=== PATIENT | female | born 1945 | race Two or more races ===

== ENCOUNTER 2017-10-22 08:26 | Day surgery (SDC) | payer MEDICARE, MEDICAID ==
[~2017-10-22] VITALS: Ht 170.2 cm; Wt 159.1 kg
[~2017-10-22 08:26] MED LIST: FURO20TA4 PO; LISI10TA4 PO; POTA8TAB8 PO; TIOT18CA7 IH
[2017-10-22 08:40] VITALS: BP 142/86
[2017-10-22] MEDS ORDERED: fentaNYL/PF 50MCG/1 ML 2ML syringe ONE (08:40)
[2017-10-22] MEDS ORDERED: MIDAZolam 5mg/5ml vial ONE (08:41)
[2017-10-22] MEDS ORDERED: ALBU1.257 NEB (09:01)
[2017-10-22 09:51] VITALS: BP 111/51
[2017-10-22 10:01] VITALS: BP 114/53
[2017-10-22 10:11] VITALS: BP 146/79
== END 2017-10-22 10:40 | disposition home or self-care (01) ==
LOC: GI LAB 08:26
PROVIDERS: ATTEND Internal Medicine Gastroenterology
DX: Z09 Encounter for follow-up examination after completed treatment for conditions other than malignant neoplasm (principal); K57.30 Diverticulosis of large intestine without perforation or abscess without bleeding; D12.3 Benign neoplasm of transverse colon; I11.0 Hypertensive heart disease with heart failure; I50.9 Heart failure, unspecified; I48.91 Unspecified atrial fibrillation; I49.9 Cardiac arrhythmia, unspecified; G47.33 Obstructive sleep apnea (adult) (pediatric); F41.9 Anxiety disorder, unspecified; F32.9 Major depressive disorder, single episode, unspecified; J44.9 Chronic obstructive pulmonary disease, unspecified; Z86.010 Personal history of colon polyps; Z90.49 Acquired absence of other specified parts of digestive tract; Z90.89 Acquired absence of other organs; Z87.891 Personal history of nicotine dependence; Z98.890 Other specified postprocedural states; Z79.899 Other long term (current) drug therapy
CPT/HCPCS: 45385; 99153; G0500; J2250; J3010; J7030; A4620

== ENCOUNTER → 2018-05-14 | Outpatient (CLI) | payer MEDICARE, MEDICAID ==
[~2018-05-14] VITALS: Ht 170.2 cm; Wt 145.1 kg
[~2018-05-14] MED LIST changes: +ALBU1.257 NEB; -TIOT18CA7 IH; +albuterol 2.5 MG/3 ML nebule NEB ONE
[2018-05-14 16:11] LABS: ABG BASE EXCESS 3.6 mmol/L (-2.0-3.0); ABG HCO3 31.2 mmol/L (22.0-26.0); ABG OXYGEN SATURATION 90.4 % (95-98); ABG PCO2 (T) 62.4 mmHg (32.0-45.0); ABG PH (T) 7.317 (7.350-7.450); ABG PO2 (T) 63.5 mmHg (83-108); ALLEN'S TEST Positive; FCOHb 0.5 % (0.5-1.5); FLOW 2 L/min; FO2Hb 89.9 % (94-100); TOTAL HEMOGLOBIN 12.2 G/dl (12.0-16.0)
== END | disposition home or self-care (01) ==
LOC: RT 15:06
PROVIDERS: ATTEND Internal Medicine Pulmonary Disease
DX: G47.33 Obstructive sleep apnea (adult) (pediatric) (principal); J44.9 Chronic obstructive pulmonary disease, unspecified; R06.09 Other forms of dyspnea; F17.210 Nicotine dependence, cigarettes, uncomplicated; Z98.890 Other specified postprocedural states
CPT/HCPCS: 36600; 82803; 85018; 94060; 94729; 94760

== ENCOUNTER 2019-04-13 07:08 | Day surgery (SDC) | payer MEDICARE, MEDICAID ==
[2019-04-07 11:41] LABS: BASOPHILS % (AUTO) 0.1 % (0-1); EOSINOPHILS # (AUTO) 0.1 X10'3 (0-0.9); EOSINOPHILS % (AUTO) 0.6 % (0-6); MEAN CORPUSCULAR HGB CONC 32.1 g/dL (33.0-36.5); MONOCYTES # (AUTO) 0.6 X10'3 (0-0.9); MONOCYTES % (AUTO) 4.2 % (2-12); PRE OP HEMOGLOBIN 11.1 g/dL (12.0-16.0)
[2019-04-07 11:43] LABS: LYMPHOCYTES # (AUTO) 7.5 X10'3 (1.1-4.8); LYMPHOCYTES % (AUTO) 54.3 % (21-51); MEAN CORPUSCULAR VOLUME 93.4 FL (78-98); MEAN PLATELET VOLUME 8.2 FL (7.4-10.4); NEUTROPHILS # (AUTO) 5.6 X10'3 (1.8-7.7); NEUTROPHILS % (AUTO) 40.8 % (42-75); PRE OP HEMATOCRIT 34.6 % (35.0-45.0); PRE OP PLATELET COUNT 156 X10'3 (140-440); RED BLOOD COUNT 3.71 X10'6 (4.20-5.60)
[2019-04-07 11:55] LABS: ALBUMIN 3.4 G/DL (3.4-5.0); ALBUMIN/GLOBULIN RATIO 0.9 (1.1-1.5); ALKALINE PHOSPHATASE 87 IU/L (46-116); BLOOD UREA NITROGEN 44 MG/DL (7-18); BUN/CREATININE RATIO 30.6 (6.6-38.0); CALCIUM 8.6 MG/DL (8.5-10.1); CHLORIDE 107 MMOL/L (99-107); CREATININE 1.44 MG/DL (0.40-0.90); PRE OP ALT 17 U/L (30-65); PRE OP ANION GAP 6 (8-16); PRE OP AST 10 U/L (10-37); PRE OP BILIRUB, TOTAL 0.3 MG/DL (0.0-1.0); PRE OP GLUCOSE 100 MG/DL (70-104); PRE OP POTASSIUM 4.9 MMOL/L (3.4-5.1); PRE OP SODIUM 145 MMOL/L (135-145); TOTAL CARBON DIOXIDE 32.1 MMOL/L (24-32); TOTAL PROTEIN 7.4 G/DL (6.4-8.2); eGFR 36 ML/MIN
[2019-04-07 12:25] LABS: TOTAL CELLS COUNTED 100
[2019-04-07 12:27] LABS: ELLIPTOCYTES FEW; PLATELET ESTIMATE NORMAL; SMUDGE CELLS 1+; STOMATOCYTES 2+
[2019-04-13] VITALS (7 sets, daily range): BP systolic 140–180; BP diastolic 70–78
[~2019-04-13] VITALS: Ht 170.2 cm; Wt 171.3 kg
[~2019-04-13 07:08] MED LIST changes: +BUPIVAcaine/PF 2.5mg/ml (0.25%) 10ml vial ONE; +DOCUMENT DATE & TIME OF BETA-BLOCKER PO ONE; -albuterol 2.5 MG/3 ML nebule NEB ONE; +ceFAZolin 1GM/D5W- ADD-VANTAGE 50 ML IV ONE; +cefazolin/dext.iso 2gm/100 ML IV ONE; +famotidine 20mg tablet PO ONE; +ringers solution, lacted 1,000 ML IV SCH
[2019-04-13] MEDS ORDERED: LIDOcaine 0.5% (5mg/ml) 50ml vial ONE (08:01)
[2019-04-13] MEDS ORDERED: fentaNYL/PF 50MCG/1 ML 2ML syringe ONE (11:03)
[2019-04-13] MEDS ORDERED: midazolam 2 mg/2 ml injection ONE (11:05)
[2019-04-13] MEDS ORDERED: hydrALAZINE 20mg/ml inj. IV ONE (11:24)
--- NOTE | 2019-04-13 11:30 | NUR ---
ADMITTED TO PACU FROM OR ACCOMPANIED BY ANESTHESIA. INTIAL PHYSICAL ASSESSMENT DONE AND RECORDED. AWAKE AND RESPONSE ON ARRIVE YO PACU, REPORT RECEIVED FROM ANESTHESIA.
--- NOTE | 2019-04-13 12:15 | NUR ---
Discharge criteria met, discharge instructions given, demonstrates verbal understanding. Discharged home in good condition.
== END 2019-04-13 12:15 | disposition home or self-care (01) ==
LOC: PAS 07:08
PROVIDERS: ATTEND Orthopaedic Surgery Hand Surgery
DX: G56.02 Carpal tunnel syndrome, left upper limb (principal); J44.9 Chronic obstructive pulmonary disease, unspecified; G47.33 Obstructive sleep apnea (adult) (pediatric); I25.2 Old myocardial infarction; I11.0 Hypertensive heart disease with heart failure; I50.9 Heart failure, unspecified; M19.90 Unspecified osteoarthritis, unspecified site; I25.10 Atherosclerotic heart disease of native coronary artery without angina pectoris; E66.01 Morbid (severe) obesity due to excess calories; Z68.43 Body mass index [BMI] 50.0-59.9, adult; Z99.81 Dependence on supplemental oxygen; Z87.891 Personal history of nicotine dependence; Z79.899 Other long term (current) drug therapy; Z72.89 Other problems related to lifestyle; Z95.5 Presence of coronary angioplasty implant and graft
CPT/HCPCS: 29848; 36415; 80053; 82948; 85025; 93005; J0360; J0690; J2001; J2250; J3010; J3490; A4215; A7000; J7120

== ENCOUNTER 2019-08-07 21:37 | Emergency (ER) | payer MEDICARE, MEDICAID ==
[~2019-08-07] VITALS: Ht 170.2 cm; Wt 168.0 kg
[~2019-08-07 21:37] MED LIST changes: -BUPIVAcaine/PF 2.5mg/ml (0.25%) 10ml vial ONE; -DOCUMENT DATE & TIME OF BETA-BLOCKER PO ONE; -ceFAZolin 1GM/D5W- ADD-VANTAGE 50 ML IV ONE; -cefazolin/dext.iso 2gm/100 ML IV ONE; -famotidine 20mg tablet PO ONE; -ringers solution, lacted 1,000 ML IV SCH
[2019-08-07 21:41] VITALS: BP 162/69
[2019-08-07] MEDS ORDERED: TETanus/Pertussis (Acell)/Diphther VAC/PF (Tdap-Adult) 0.5ml syringe IMVAC ONE (22:15)
[2019-08-07] MEDS ORDERED: traMADol 50MG tablet PO ONE (23:00)
[2019-08-07] MEDS ORDERED: CEPH-572 PO (23:09)
== END 2019-08-07 23:23 | disposition home or self-care (01) ==
LOC: ER 21:37
DX: S81.812A Laceration without foreign body, left lower leg, initial encounter (principal); Z90.49 Acquired absence of other specified parts of digestive tract; Z98.890 Other specified postprocedural states; Z60.2 Problems related to living alone; Z56.0 Unemployment, unspecified; Z79.899 Other long term (current) drug therapy; W18.39XA Other fall on same level, initial encounter; Y93.89 Activity, other specified; Y92.098 Other place in other non-institutional residence as the place of occurrence of the external cause; Y99.8 Other external cause status
CPT/HCPCS: 12001; 73564; 73590; 90471; 90715; 99283

== ENCOUNTER 2020-05-23 14:28 | Inpatient (IN) | payer MEDICARE, MEDICAID ==
[~2020-05-23] VITALS: Ht 167.6 cm; Wt 140.9 kg
[2020-05-23 15:24] LABS: EOSINOPHILS # (AUTO) 0.1 X10'3 (0-0.9); EOSINOPHILS % (AUTO) 0.3 % (0-6); MEAN CORPUSCULAR HEMOGLOBIN 29.2 PG (27.0-31.0); MEAN CORPUSCULAR HGB CONC 31.1 g/dL (33.0-36.5); MEAN PLATELET VOLUME 7.8 FL (7.4-10.4); MONOCYTES # (AUTO) 0.6 X10'3 (0-0.9)
[2020-05-23 15:26] LABS: BASOPHILS % (AUTO) 0.1 % (0-1); HEMATOCRIT 33.7 % (35.0-45.0); HEMOGLOBIN 10.5 g/dl (12.0-16.0); LYMPHOCYTES # (AUTO) 13.2 X10'3 (1.1-4.8); LYMPHOCYTES % (AUTO) 70.7 % (21-51); MEAN CORPUSCULAR VOLUME 93.9 FL (78-98); MONOCYTES % (AUTO) 3.3 % (2-12); NEUTROPHILS # (AUTO) 4.8 X10'3 (1.8-7.7); NEUTROPHILS % (AUTO) 25.6 % (42-75); PLATELET COUNT 212 X10'3 (140-440); RED BLOOD COUNT 3.59 X10'6 (4.20-5.60); RED CELL DISTRIBUTION WIDTH 14.4 % (11.5-14.5); WHITE BLOOD COUNT 18.7 X10'3 (4.5-11.0)
[2020-05-23 15:39] LABS: ALANINE AMINOTRANSFERASE 27 U/L (12-78); ALBUMIN 3.1 G/DL (3.4-5.0); ALBUMIN/GLOBULIN RATIO 0.8 (1.1-1.5); ALKALINE PHOSPHATASE 86 IU/L (46-116); ANION GAP 4 (8-16); ASPARTATE AMINO TRANSFERASE 13 U/L (10-37); BILIRUBIN,TOTAL 0.3 MG/DL (0.1-1.0); BLOOD UREA NITROGEN 53 MG/DL (7-18); BUN/CREATININE RATIO 18.5 (6.6-38.0); CALCIUM 8.8 MG/DL (8.5-10.1); CHLORIDE 104 MMOL/L (99-107); CREATININE 2.86 MG/DL (0.40-0.90); GLUCOSE 101 MG/DL (70-104); POTASSIUM 4.4 MMOL/L (3.5-5.1); SODIUM 140 MMOL/L (135-145); TOTAL CARBON DIOXIDE 32.3 MMOL/L (24-32); TOTAL PROTEIN 6.9 G/DL (6.4-8.2); eGFR 16 ML/MIN
[2020-05-23] MEDS ORDERED: normal saline 1000ml 1,000 ML IV ONE (15:45)
[2020-05-23 15:49] LABS: PLATELET ESTIMATE NORMAL; SMUDGE CELLS 2+; TOTAL CELLS COUNTED 100
[2020-05-23 16:11] LABS: CLARITY,URINE SLIGHTLY CLOUDY (Clear); COLOR,URINE YELLOW (Yellow); GLUCOSE, URINE NEGATIVE (Neg); KETONES,URINE NEGATIVE (Neg); LEUKOCYTE ESTERASE ,URINE MODERATE (Neg); NITRITES, URINE NEGATIVE (Neg); OCCULT BLOOD,URINE MODERATE (Neg); PH,URINE 5.5 (4.8-8.0); PROTEIN,URINE TRACE mg/dl (Neg); UROBILINOGEN,URINE 0.2 E.U/dL (0.2-1.0)
[2020-05-23 16:13] LABS: UA COLLECTION TYPE CLN CATCH MIDSTREAM
[2020-05-23 16:18] LABS: SQUAMOUS EPITHELIAL CELL,UR MANY /LPF (FEW)
[2020-05-23 16:20] LABS: BACTERIA,URINE 1+ /HPF (Neg)
[2020-05-23 16:21] LABS: AMORPHOUS URATES 1+
[2020-05-23] MEDS ORDERED: OMEP-50 PO (17:16)
[2020-05-23] MEDS ORDERED: LORA10TA7 PO (17:16)
[2020-05-23] MEDS ORDERED: GABA-530 PO (17:16)
[2020-05-23] MEDS ORDERED: FLUT16SP20 BOTHNARES (17:16)
--- NOTE | 2020-05-23 17:16 | NUR ---
WHILE ASSISTING PT BACK INTO BED FROM THE BEDSIDE CAMODE, PT GOT A SMALL SKING TEAR MEDIALLY JUST ABOVE HER LT ANKLE. WOUND WAS CLEANED AND DRESSED WITH ABX OINTMENT AND BANDAID, PROVIDER NOTIFIED OF INJURY. SKIN TEAR IS APPROX 1 CM IN DIAMETER. PHOTO TAKEN AND ADDED TO PT CHART
[2020-05-23] MEDS ORDERED: potassium CL 10mEq/100ml bag 100 ML IV PRN ×2 (18:05)
[2020-05-23] MEDS ORDERED: acetaminophen 325mg tablet PO PRN (18:05)
[2020-05-23] MEDS ORDERED: ondansetron/PF 4mg/2ml inj IV PRN (18:05)
[2020-05-23] MEDS ORDERED: potassium Cl 20 mEq SR tablet PO PRN ×2 (18:05)
[2020-05-23] MEDS: normal saline 1000ml 1,000 ML IV SCH (18:25)
[2020-05-23 18:46] LABS: CLARITY,URINE SLIGHTLY CLOUDY (Clear); GLUCOSE, URINE NEGATIVE (Neg); KETONES,URINE NEGATIVE (Neg); LEUKOCYTE ESTERASE ,URINE MODERATE (Neg); NITRITES, URINE NEGATIVE (Neg); OCCULT BLOOD,URINE MODERATE (Neg); PH,URINE 5.5 (4.8-8.0); PROTEIN,URINE TRACE mg/dl (Neg); UROBILINOGEN,URINE 0.2 E.U/dL (0.2-1.0)
[2020-05-23 18:48] LABS: COLOR,URINE DARK YELLOW (Yellow); UA COLLECTION TYPE CLN CATCH MIDSTREAM
--- NOTE | 2020-05-23 18:51 | NUR ---
GIVEN YOGURT, APPLESAUCE, CRANBERRY JUICE, AND WATER PER PT REQUEST. NO OTHER NEEDS AT THIS TIME
[2020-05-23 18:59] LABS: AMORPHOUS URATES 1+; BACTERIA,URINE 2+ /HPF (Neg); MUCUS STRANDS FEW /LPF (Neg); SQUAMOUS EPITHELIAL CELL,UR MANY /LPF (FEW)
[2020-05-23] MEDS: K and/or MAG REPLACEMENT MC SCH (20:00)
[2020-05-23] MEDS: docusate sod 100mg capsule PO SCH (20:12)
[2020-05-23] MEDS: heparin, porcine 5000 units/ml vial SQ SCH (20:13)
[2020-05-23 23:00] VITALS: BP 136/59
[2020-05-24] MEDS: normal saline 1000ml 1,000 ML IV SCH ×2 (04:05→14:05)
[2020-05-24 06:00] VITALS: BP 125/63
--- NOTE | 2020-05-24 06:21 | NUR ---
REPORT GIVEN TO CRISPIN ASHRAF
[2020-05-24 06:56] LABS: EOSINOPHILS # (AUTO) 0.1 X10'3 (0-0.9); MEAN PLATELET VOLUME 7.9 FL (7.4-10.4)
[2020-05-24 06:58] LABS: BASOPHILS % (AUTO) 0.3 % (0-1); EOSINOPHILS % (AUTO) 0.6 % (0-6); HEMATOCRIT 32.1 % (35.0-45.0); HEMOGLOBIN 9.9 g/dl (12.0-16.0); LYMPHOCYTES # (AUTO) 11.6 X10'3 (1.1-4.8); LYMPHOCYTES % (AUTO) 66.6 % (21-51); MEAN CORPUSCULAR HEMOGLOBIN 29.3 PG (27.0-31.0); MEAN CORPUSCULAR VOLUME 94.6 FL (78-98); MONOCYTES # (AUTO) 0.8 X10'3 (0-0.9); MONOCYTES % (AUTO) 4.4 % (2-12); NEUTROPHILS # (AUTO) 4.9 X10'3 (1.8-7.7); NEUTROPHILS % (AUTO) 28.1 % (42-75); PLATELET COUNT 200 X10'3 (140-440); RED BLOOD COUNT 3.39 X10'6 (4.20-5.60); RED CELL DISTRIBUTION WIDTH 14.2 % (11.5-14.5); WHITE BLOOD COUNT 17.4 X10'3 (4.5-11.0)
[2020-05-24 07:07] LABS: ALBUMIN 2.9 G/DL (3.4-5.0); ANION GAP 5 (8-16); BLOOD UREA NITROGEN 46 MG/DL (7-18); BUN/CREATININE RATIO 18.8 (6.6-38.0); CALCIUM 8.5 MG/DL (8.5-10.1); CHLORIDE 110 MMOL/L (99-107); CREATININE 2.45 MG/DL (0.40-0.90); GLUCOSE 103 MG/DL (70-104); POTASSIUM 4.5 MMOL/L (3.5-5.1); SODIUM 145 MMOL/L (135-145); TOTAL CARBON DIOXIDE 29.6 MMOL/L (24-32); eGFR 19 ML/MIN
[2020-05-24 07:22] LABS: PLATELET ESTIMATE NORMAL; TOTAL CELLS COUNTED 100
[2020-05-24 07:23] LABS: SMUDGE CELLS 2+
[2020-05-24] MEDS: CefTRIAXone/D5W-Rocephin 1gm 50 ML IV SCH (07:42)
[2020-05-24] MEDS: docusate sod 100mg capsule PO SCH ×2 (07:43→20:47)
[2020-05-24] MEDS: heparin, porcine 5000 units/ml vial SQ SCH ×2 (07:43→20:48)
[2020-05-24] MEDS: fluticasone nasal spray 16GM bottle NS SCH (08:00)
[2020-05-24] MEDS: K and/or MAG REPLACEMENT MC SCH ×2 (08:00→20:00)
[2020-05-24 18:00] VITALS: BP 130/56
--- NOTE | 2020-05-24 18:30 | NUR ---
Problems reprioritized. Patient report given, questions answered & plan of care reviewed with Sherrie ASHRAF.
[2020-05-24 20:45] VITALS: BP 140/62
[2020-05-24] MEDS: mineral oil/petrolatum, white cream 113gm jar TP SCH (20:47)
[2020-05-24] MEDS: lactobacillus rhamnosus 10,000 MMU CELLS/CAPSULE PO SCH (20:47)
--- NOTE | 2020-05-24 22:00 | NUR ---
patient refuses to turn onto side or have pillows propped to reposition off of coccyx. educated on priority and risks and benefits. pt stated "no!" will continue to attempt to reposition.
[2020-05-25 02:30] VITALS: BP 135/60
--- NOTE | 2020-05-25 02:47 | NUR ---
noted patient has only 1-2 word sentences. asked pt if she takes lasix at home - she nodded yes. no lasix ordred - held on admission. paged MD for orders due to patient's increased SOB. VSS sats 95 % on 1.5L. respirations 28
[2020-05-25] MEDS ORDERED: furosemide 40mg/4ml inj IV ONE (02:55)
--- NOTE | 2020-05-25 03:00 | NUR ---
pt refuses to reposition to her sides. continues to sit at 60 degrees head elevation on her back.
[2020-05-25] MEDS: normal saline 1000ml 1,000 ML IV SCH ×2 (03:20→17:09)
[2020-05-25 06:00] VITALS: BP 133/67
--- NOTE | 2020-05-25 06:16 | NUR ---
reported to days. noted to RN to watch for fluid overload. sats 90% on 1.5 L at this time.
--- NOTE | 2020-05-25 06:33 | NUR ---
Received report from Sherrie ASHRAF, [facility].
[2020-05-25] MEDS: K and/or MAG REPLACEMENT MC SCH ×2 (08:00→20:00)
[2020-05-25] MEDS: CefTRIAXone/D5W-Rocephin 1gm 50 ML IV SCH (08:00)
[2020-05-25 09:30] LABS: BASOPHILS % (AUTO) 0.2 % (0-1); EOSINOPHILS # (AUTO) 0.1 X10'3 (0-0.9); LYMPHOCYTES # (AUTO) 14.7 X10'3 (1.1-4.8); LYMPHOCYTES % (AUTO) 64.8 % (21-51); NEUTROPHILS # (AUTO) 7.3 X10'3 (1.8-7.7)
[2020-05-25 09:32] LABS: EOSINOPHILS % (AUTO) 0.3 % (0-6); HEMATOCRIT 36.6 % (35.0-45.0); HEMOGLOBIN 11.2 g/dl (12.0-16.0); MEAN CORPUSCULAR HEMOGLOBIN 29.6 PG (27.0-31.0); MEAN CORPUSCULAR HGB CONC 30.4 g/dL (33.0-36.5); MEAN CORPUSCULAR VOLUME 97.4 FL (78-98); MEAN PLATELET VOLUME 7.8 FL (7.4-10.4); MONOCYTES # (AUTO) 0.6 X10'3 (0-0.9); MONOCYTES % (AUTO) 2.5 % (2-12); NEUTROPHILS % (AUTO) 32.2 % (42-75); PLATELET COUNT 224 X10'3 (140-440); RED BLOOD COUNT 3.76 X10'6 (4.20-5.60); RED CELL DISTRIBUTION WIDTH 14.6 % (11.5-14.5); WHITE BLOOD COUNT 22.7 X10'3 (4.5-11.0)
[2020-05-25] MEDS: docusate sod 100mg capsule PO SCH ×2 (09:40→21:07)
[2020-05-25] MEDS: heparin, porcine 5000 units/ml vial SQ SCH ×2 (09:40→21:07)
[2020-05-25] MEDS: lactobacillus rhamnosus 10,000 MMU CELLS/CAPSULE PO SCH ×2 (09:40→21:07)
[2020-05-25 09:41] LABS: ALBUMIN 3.1 G/DL (3.4-5.0); ANION GAP 5 (8-16); BLOOD UREA NITROGEN 40 MG/DL (7-18); BUN/CREATININE RATIO 16.3 (6.6-38.0); CALCIUM 8.4 MG/DL (8.5-10.1); CHLORIDE 105 MMOL/L (99-107); CREATININE 2.46 MG/DL (0.40-0.90); GLUCOSE 140 MG/DL (70-104); POTASSIUM 4.8 MMOL/L (3.5-5.1); SODIUM 141 MMOL/L (135-145); TOTAL CARBON DIOXIDE 31.2 MMOL/L (24-32); eGFR 19 ML/MIN
[2020-05-25] MEDS: mineral oil/petrolatum, white cream 113gm jar TP SCH ×2 (09:41→21:06)
[2020-05-25] MEDS: fluticasone nasal spray 16GM bottle NS SCH (09:41)
[2020-05-25 10:00] VITALS: BP 147/67
[2020-05-25 10:59] LABS: TOTAL CELLS COUNTED 100
[2020-05-25 11:01] LABS: PLATELET ESTIMATE NORMAL; SMUDGE CELLS 2+
--- NOTE | 2020-05-25 12:16 | NUR ---
PAGECharlie FOR IV PLACEMENT WITH ULTRASOUND. PT HAS NO ACCESSIBLE VEINS AND WOULD REQUIRE A MIDLINE IF NEEDED. PER DR. RASHID, NO IV AT THIS TIME SHE WILL NOTIFY IF NEEDED. GEGE ASHRAF NOTIFIED Mindi BEE RN Addendum: 05/25/20 at 1226 by Verna Meyer RN CORRECTION LUCIANA ASHRAF NOTIFIED OF DR. RASHID'S REQUEST FOR NO IV AT THIS TIME
--- NOTE | 2020-05-25 13:18 | NUR ---
Paged Dr. Snyder, "Suzan [phone] Jesenia Castelan- no IV, held IV abx Rocephin due to no IV, do you want alternate abx via oral?" waiting on orders.
[2020-05-25 14:47] VITALS: BP_SYST 138; BP_SYST 146; BP_DIAS 63; BP_DIAS 67
--- NOTE | 2020-05-25 15:59 | NUR ---
Gave report to Agapito ASHRAF. Paged hosp again "Agapito [phone] Jesenia Castelan: Do you want po antibiotics since IV cannot be started?" waiting for orders.
--- NOTE | 2020-05-25 16:25 | NUR ---
Gave report to Agapito ASHRAF, transferred care.
[2020-05-25] MEDS: levoFLOXACIN 500mg tablet PO SCH (17:09)
--- NOTE | 2020-05-25 18:07 | NUR ---
RECEIVED REPORT FROM RAGHAV ASHRAF AND ASSUMED PATIENT CARE
[2020-05-25 18:27] VITALS: BP 140/48
[2020-05-25 22:00] VITALS: BP 140/58
[2020-05-26] MEDS: HYDROcodone/acetaminophen 5mg/325mg tablet PO PRN ×2 (01:00→23:55)
[2020-05-26] MEDS: LORazepam 0.5 MG tablet PO PRN (01:00)
[2020-05-26 06:00] VITALS: BP 135/68
[2020-05-26 06:49] LABS: BASOPHILS % (AUTO) 0.1 % (0-1); EOSINOPHILS # (AUTO) 0.1 X10'3 (0-0.9); EOSINOPHILS % (AUTO) 0.4 % (0-6); HEMATOCRIT 34.1 % (35.0-45.0); HEMOGLOBIN 10.4 g/dl (12.0-16.0); LYMPHOCYTES # (AUTO) 14.6 X10'3 (1.1-4.8); LYMPHOCYTES % (AUTO) 62.9 % (21-51); MEAN CORPUSCULAR HEMOGLOBIN 29.4 PG (27.0-31.0); MEAN CORPUSCULAR HGB CONC 30.5 g/dL (33.0-36.5); MEAN CORPUSCULAR VOLUME 96.4 FL (78-98); MONOCYTES # (AUTO) 0.8 X10'3 (0-0.9); MONOCYTES % (AUTO) 3.3 % (2-12); NEUTROPHILS # (AUTO) 7.7 X10'3 (1.8-7.7); NEUTROPHILS % (AUTO) 33.3 % (42-75); PLATELET COUNT 202 X10'3 (140-440); RED BLOOD COUNT 3.54 X10'6 (4.20-5.60); RED CELL DISTRIBUTION WIDTH 14.7 % (11.5-14.5); WHITE BLOOD COUNT 23.1 X10'3 (4.5-11.0)
[2020-05-26 07:06] LABS: ANION GAP 6 (8-16); BLOOD UREA NITROGEN 44 MG/DL (7-18); CALCIUM 8.8 MG/DL (8.5-10.1); CHLORIDE 107 MMOL/L (99-107); CREATININE 2.44 MG/DL (0.40-0.90); GLUCOSE 101 MG/DL (70-104); SODIUM 144 MMOL/L (135-145); TOTAL CARBON DIOXIDE 30.6 MMOL/L (24-32); eGFR 19 ML/MIN
[2020-05-26] MEDS: mineral oil/petrolatum, white cream 113gm jar TP SCH ×2 (08:00→21:45)
[2020-05-26 08:23] LABS: PLATELET ESTIMATE NORMAL; TOTAL CELLS COUNTED 100
[2020-05-26 08:24] LABS: SMUDGE CELLS 2+; STOMATOCYTES 1+
[2020-05-26] MEDS: K and/or MAG REPLACEMENT MC SCH ×2 (08:48→19:34)
[2020-05-26] MEDS: heparin, porcine 5000 units/ml vial SQ SCH ×2 (09:06→21:42)
[2020-05-26] MEDS: docusate sod 100mg capsule PO SCH ×2 (09:06→21:41)
[2020-05-26] MEDS: lactobacillus rhamnosus 10,000 MMU CELLS/CAPSULE PO SCH ×2 (09:06→21:41)
[2020-05-26] MEDS: fluticasone nasal spray 16GM bottle NS SCH (09:06)
[2020-05-26] MEDS: CefTRIAXone/D5W-Rocephin 1gm 50 ML IV SCH (09:07)
[2020-05-26 10:00] VITALS: BP 127/55
[2020-05-26] MEDS: normal saline 1000ml 1,000 ML IV SCH ×2 (13:37→23:25)
[2020-05-26] MEDS: levoFLOXACIN 500mg tablet PO SCH (13:37)
[2020-05-26] MEDS ORDERED: diatr meglu/diatrizoate 30ml oral sol.-(3 dose) bottle PO SCH (15:00)
--- NOTE | 2020-05-26 15:34 | NUR ---
REPORT TO SHAISTA ASHRAF
--- NOTE | 2020-05-26 15:37 | NUR ---
received report from ANDRIY hurd. awaiting patient arrival.
[2020-05-26] MEDS: metroNIDAZOLE-Flagyl 500mg/NS 100 ML IV SCH ×2 (16:00→23:25)
--- NOTE | 2020-05-26 16:00 | NUR ---
Linked medication note: patient arrived to floor at 1600. VSS. 1500 dose of flagyl is currently infusing. medication was pulled out of the omnicell by anjelica hurd.
[2020-05-26 16:05] VITALS: BP 149/76
--- NOTE | 2020-05-26 17:49 | NUR ---
PAGER ID: [phone] MESSAGE: Tessa CastelanB : CT said patients creatinine too high for IV contrast. will need to be PO contrast and no IV contrast. thanks! [phone] donnie
--- NOTE | 2020-05-26 18:20 | NUR ---
Problems reprioritized. Patient report given, questions answered & plan of care reviewed with ANDRIY Douglas.
[2020-05-26 18:30] VITALS: BP 143/55
--- NOTE | 2020-05-26 18:40 | NUR ---
Patient in room MONO 346. I have received report from ANDRIY Clemente and had the opportunity to ask questions and assume patient care.
[2020-05-26 19:00] VITALS: BP 143/55
[2020-05-26] MEDS ORDERED: Melatonin 3mg tablet PO SCH (21:30)
[2020-05-26] MEDS: diatr meglu/diatrizoate 30ml oral sol.-(3 dose) bottle PO SCH (21:43)
[2020-05-27] VITALS (10 sets, daily range): BP systolic 97–134; BP diastolic 50–87
[2020-05-27] MEDS: LORazepam 0.5 MG tablet PO PRN (01:44)
[2020-05-27] MEDS ORDERED: Melatonin 3mg tablet PO PRN (02:45)
--- NOTE | 2020-05-27 06:17 | NUR ---
Problems reprioritized. Patient report given, questions answered & plan of care reviewed with ANDRIY Clemente.
[2020-05-27] MEDS: metroNIDAZOLE-Flagyl 500mg/NS 100 ML IV SCH ×2 (07:37→16:42)
[2020-05-27] MEDS: diatr meglu/diatrizoate 30ml oral sol.-(3 dose) bottle PO SCH ×2 (07:39→12:19)
[2020-05-27] MEDS: heparin, porcine 5000 units/ml vial SQ SCH ×2 (07:39→19:59)
[2020-05-27] MEDS: lactobacillus rhamnosus 10,000 MMU CELLS/CAPSULE PO SCH ×2 (07:40→19:59)
[2020-05-27] MEDS: docusate sod 100mg capsule PO SCH ×2 (07:40→19:59)
[2020-05-27] MEDS: K and/or MAG REPLACEMENT MC SCH ×2 (07:40→19:59)
[2020-05-27] MEDS: mineral oil/petrolatum, white cream 113gm jar TP SCH ×2 (07:45→20:00)
[2020-05-27] MEDS: fluticasone nasal spray 16GM bottle NS SCH (07:47)
[2020-05-27 11:37] LABS: EOSINOPHILS % (AUTO) 0.1 % (0-6); MONOCYTES # (AUTO) 0.7 X10'3 (0-0.9); RED BLOOD COUNT 3.83 X10'6 (4.20-5.60)
[2020-05-27 11:38] LABS: ALBUMIN 3.2 G/DL (3.4-5.0); ANION GAP 7 (8-16); BLOOD UREA NITROGEN 49 MG/DL (7-18); BUN/CREATININE RATIO 16.2 (6.6-38.0); CALCIUM 8.9 MG/DL (8.5-10.1); CHLORIDE 106 MMOL/L (99-107); CREATININE 3.03 MG/DL (0.40-0.90); GLUCOSE 148 MG/DL (70-104); POTASSIUM 5.6 MMOL/L (3.5-5.1); SODIUM 141 MMOL/L (135-145); TOTAL CARBON DIOXIDE 28.1 MMOL/L (24-32); eGFR 15 ML/MIN
[2020-05-27 11:39] LABS: BASOPHILS % (AUTO) 0.1 % (0-1); LYMPHOCYTES # (AUTO) 19.9 X10'3 (1.1-4.8); LYMPHOCYTES % (AUTO) 66.4 % (21-51); MEAN PLATELET VOLUME 8.5 FL (7.4-10.4); MONOCYTES % (AUTO) 2.4 % (2-12); NEUTROPHILS # (AUTO) 9.3 X10'3 (1.8-7.7); PLATELET COUNT 237 X10'3 (140-440)
--- NOTE | 2020-05-27 11:48 | NUR ---
Page sent to Respiratory ... Tessa Castelan 346B: new RT orders. thanks! Addendum: 05/27/20 at 1148 by Chyna Buchanan RN Amended: Links added.
[2020-05-27 12:00] LABS: HEMATOCRIT 34.9 % (35.0-45.0); MEAN CORPUSCULAR HEMOGLOBIN 30.1 PG (27.0-31.0); MEAN CORPUSCULAR HGB CONC 31.5 g/dL (33.0-36.5); MEAN CORPUSCULAR VOLUME 95.7 FL (78-98)
[2020-05-27 12:01] LABS: RED CELL DISTRIBUTION WIDTH 14.5 % (11.5-14.5)
[2020-05-27 12:03] LABS: WHITE BLOOD COUNT 30.1 X10'3 (4.5-11.0)
--- NOTE | 2020-05-27 12:05 | NUR ---
PAGER ID: [phone] MESSAGE: Tessa Castelan 346B : critical WBC 30.1. chyna cline [id number] Addendum: 05/27/20 at 1205 by Chyna Buchanan RN Amended: Links added.
[2020-05-27 12:40] LABS: SMUDGE CELLS 2+; TOTAL CELLS COUNTED 100
[2020-05-27 12:42] LABS: LARGE PLATELETS FEW; PLATELET ESTIMATE NORMAL
[2020-05-27 12:45] LABS: ABG BASE EXCESS -8.1 mmol/L (-2.0-2.0); ABG HCO3 26.5 mmol/L (22.0-26.0); ABG PCO2 (T) 124.3 mmHg (32.0-45.0); ALLEN'S TEST POSITIVE; FCOHb 1.2 % (0.0-3.9); FLOW 2 L/min; FMetHb 0.1 % (0.0-1.5); FO2Hb 89.8 % (94-97); TOTAL HEMOGLOBIN 12.3 G/dl (12.0-16.0)
--- NOTE | 2020-05-27 13:45 | NUR ---
Patient in room MONO 346. I have received report from ANDRIY Garland and had the opportunity to ask questions and awaiting patient's arrival to PCU.
--- NOTE | 2020-05-27 13:49 | NUR ---
call to CT scan. they will hold until patient can tolerate being off of the bipap. will notify dr. hardy
--- NOTE | 2020-05-27 13:52 | NUR ---
page sent to maninder. Tessa Castelan 346B : can someone help transfer patient to [facility]. thanks!
--- NOTE | 2020-05-27 14:10 | NUR ---
Pt arrived from Med/Surg floor. Pt alert to name. BLL, call light within reach, Bipap on, 35%Fi02. On [facility] [facility] bed. Hooked up to mobile telemetry. First set of vitals complete.
--- NOTE | 2020-05-27 14:11 | NUR ---
Report given to ANDRIY Lee. patient transferred to room 6608C. All belongings sent with patient.
--- NOTE | 2020-05-27 14:19 | NUR ---
PAGER ID: [phone] MESSAGE: Tessa Castelan [id number] : CT said they will hold the scan until patient is able to tolerate being off of bipap. thanks! [phone]
[2020-05-27] MEDS ORDERED: furosemide 10 MG/1 ML 10ml inj IV ONE (15:40)
[2020-05-27 16:01] LABS: ABG HCO3 26.2 mmol/L (22.0-26.0); ABG OXYGEN SATURATION 94.8 % (94-97); ABG PCO2 (T) 70.6 mmHg (32.0-45.0); ABG PO2 (T) 70.9 mmHg (75.0-100.0); ALLEN'S TEST POSITIVE; FCOHb 0.9 % (0.0-3.9); FMetHb 0.3 % (0.0-1.5); FO2Hb 93.7 % (94-97); RESPIRATORY RATE 22 b/min; TOTAL HEMOGLOBIN 11.3 G/dl (12.0-16.0)
--- NOTE | 2020-05-27 18:21 | NUR ---
Problems reprioritized. Patient report given, questions answered & plan of care reviewed with ANDRIY Dawson. Pt resting comfortably at change of shift, on home trilogy Bipap. Infomred RN pt needs K+ drawn and Troponins drawn.
--- NOTE | 2020-05-27 18:30 | NUR ---
Patient in room PCU 3017. I have received report from Rosa ASHRAF and had the opportunity to ask questions and assume patient care. Patient on Bipap, reeducated the patient that she needs to stay on Bipap for CO2 and her Trilogy is unable to do that.
[2020-05-27 19:21] LABS: ABG BASE EXCESS -0.7 mmol/L (-2.0-2.0); ABG HCO3 28.1 mmol/L (22.0-26.0); ABG OXYGEN SATURATION 95.7 % (94-97); ABG PCO2 (T) 69.2 mmHg (32.0-45.0); ABG PO2 (T) 78.3 mmHg (75.0-100.0); ALLEN'S TEST POSITIVE; FCOHb 0.9 % (0.0-3.9); FO2Hb 94.8 % (94-97); RESPIRATORY RATE 22 b/min; TOTAL HEMOGLOBIN 11.1 G/dl (12.0-16.0)
[2020-05-28] VITALS (7 sets, daily range): BP systolic 107–132; BP diastolic 36–58
[2020-05-28] MEDS: metroNIDAZOLE-Flagyl 500mg/NS 100 ML IV SCH ×4 (00:20→23:50)
--- NOTE | 2020-05-28 00:24 | NUR ---
Refusing Troponin Patient refusing troponin draws, midline PIV unable to draw back blood. 3 hour Troponin 0.04.
--- NOTE | 2020-05-28 06:30 | NUR ---
Problems reprioritized. Patient report given, questions answered & plan of care reviewed with Trish ASHRAF.
[2020-05-28 06:47] LABS: BASOPHILS % (AUTO) 0.1 % (0-1); EOSINOPHILS % (AUTO) 0.2 % (0-6); HEMOGLOBIN 9.9 g/dl (12.0-16.0); RED CELL DISTRIBUTION WIDTH 14.4 % (11.5-14.5)
[2020-05-28 06:48] LABS: LYMPHOCYTES # (AUTO) 17.1 X10'3 (1.1-4.8); MEAN CORPUSCULAR HEMOGLOBIN 29.4 PG (27.0-31.0); MEAN CORPUSCULAR HGB CONC 30.9 g/dL (33.0-36.5); MEAN CORPUSCULAR VOLUME 95.4 FL (78-98); MEAN PLATELET VOLUME 8.4 FL (7.4-10.4); MONOCYTES # (AUTO) 1.2 X10'3 (0-0.9); MONOCYTES % (AUTO) 4.5 % (2-12); NEUTROPHILS # (AUTO) 7.6 X10'3 (1.8-7.7); NEUTROPHILS % (AUTO) 29.2 % (42-75); PLATELET COUNT 193 X10'3 (140-440); RED BLOOD COUNT 3.36 X10'6 (4.20-5.60)
[2020-05-28 07:03] LABS: WHITE BLOOD COUNT 25.9 X10'3 (4.5-11.0)
[2020-05-28 07:04] LABS: ALBUMIN 2.9 G/DL (3.4-5.0); ANION GAP 9 (8-16); BLOOD UREA NITROGEN 54 MG/DL (7-18); BUN/CREATININE RATIO 18.1 (6.6-38.0); CALCIUM 8.4 MG/DL (8.5-10.1); CHLORIDE 107 MMOL/L (99-107); CREATININE 2.99 MG/DL (0.40-0.90); GLUCOSE 81 MG/DL (70-104); SODIUM 144 MMOL/L (135-145); TOTAL CARBON DIOXIDE 27.8 MMOL/L (24-32); eGFR 15 ML/MIN
[2020-05-28] MEDS: K and/or MAG REPLACEMENT MC SCH ×2 (08:00→20:00)
[2020-05-28 08:05] LABS: HYPOCHROMASIA 1+; PLATELET ESTIMATE NORMAL; TOTAL CELLS COUNTED 100
[2020-05-28] MEDS: fluticasone nasal spray 16GM bottle NS SCH (08:28)
[2020-05-28] MEDS: docusate sod 100mg capsule PO SCH ×2 (08:30→20:12)
[2020-05-28] MEDS: mineral oil/petrolatum, white cream 113gm jar TP SCH ×2 (08:30→20:17)
[2020-05-28] MEDS: lactobacillus rhamnosus 10,000 MMU CELLS/CAPSULE PO SCH ×2 (08:30→20:12)
[2020-05-28] MEDS: heparin, porcine 5000 units/ml vial SQ SCH ×2 (08:30→20:13)
[2020-05-28] MEDS ORDERED: levoFLOXACIN 250mg tablet PO SCH (11:00)
--- NOTE | 2020-05-28 12:25 | NUR ---
RT AT PATIENTS BEDSIDE TO DRAW ABG, PATIENT WAS A DIFFICULT STICK AND ALLOWED ME TO ATTEMPT DRAW TWICE, SHE THEN SAID TO STOP AND "YOURE NOT GOING TO STICK ME AGAIN". PRIMARY RN CURRENTLY ON LUNCH, RESOURCE NURSE (ANDRIY REA) NOTIFIED. Addendum: 05/28/20 at 1228 by Shelly Dwyer RT Amended: Links added.
--- NOTE | 2020-05-28 16:07 | NUR ---
Initial: Pt admit DX metabolic encephalopathy r/t CO2 narcosis, UTI, TYSHAWN/CKD, HTN, and requiring bipap per EMR. Advanced to heart healthy diet PO 50-75% initial 2 days this admit declining to 25% avg meals past 3 days not meeting needs. LBM 05/23 receiving routine colace; 5 day constipation in addition to ALOC currently AOx1 likely impacting PO. RD d/w RN regarding additional bowel care if MD agreeable given constipation. Roland 13; mostly dry skin w/ small ulcers noted to toes and L lower leg per WOC note. RD recommended ensure enlive TIDWM for additional protein/kcals needs; likely to tolerate ONS since on bipap. Will continue to monitor. Rec: 1. continue heart healthy diet; encourage PO 2. ensure enlive TIDWM 3. routine bowel care 4. scaled wt this admit Addendum: 05/28/20 at [address] Amended: Links added.
[2020-05-28] MEDS: lactose-reduced food (Ensure Enlive) - 237ml bottle PO SCH (18:00)
--- NOTE | 2020-05-28 18:54 | NUR ---
Problems reprioritized. Patient report given, questions answered & plan of care reviewed with Glenna ASHRAF.
--- NOTE | 2020-05-28 18:55 | NUR ---
Patient in room PCU 3017. I have received report from DARNELL ASHRAF and had the opportunity to ask questions and assume patient care.
[2020-05-29] VITALS (10 sets, daily range): BP systolic 107–132; BP diastolic 39–57
--- NOTE | 2020-05-29 06:15 | NUR ---
Problems reprioritized. Patient report given, questions answered & plan of care reviewed with VARUN ASHRAF.
--- NOTE | 2020-05-29 06:17 | NUR ---
Patient in room PCU 3017. I have received report from Dennise ASHRAF and had the opportunity to ask questions and assume patient care. Patient is sleeping comfortably bipap is on.
[2020-05-29] MEDS: metroNIDAZOLE-Flagyl 500mg/NS 100 ML IV SCH (07:50)
[2020-05-29] MEDS: K and/or MAG REPLACEMENT MC SCH ×2 (07:51→19:59)
[2020-05-29] MEDS: lactobacillus rhamnosus 10,000 MMU CELLS/CAPSULE PO SCH ×2 (07:52→20:00)
[2020-05-29] MEDS: fluticasone nasal spray 16GM bottle NS SCH (07:52)
[2020-05-29] MEDS: heparin, porcine 5000 units/ml vial SQ SCH ×2 (07:52→19:40)
[2020-05-29] MEDS: mineral oil/petrolatum, white cream 113gm jar TP SCH ×2 (07:52→19:56)
[2020-05-29] MEDS: docusate sod 100mg capsule PO SCH ×2 (07:52→20:00)
[2020-05-29] MEDS: lactose-reduced food (Ensure Enlive) - 237ml bottle PO SCH ×2 (08:00→18:00)
[2020-05-29] MEDS: HYDROcodone/acetaminophen 5mg/325mg tablet PO PRN (08:05)
[2020-05-29] MEDS: piperacillin/tazo 4.5gm/100ml 100 ML IV SCH ×2 (09:50→19:40)
--- NOTE | 2020-05-29 13:47 | NUR ---
Patient unable to participate in orthostatic vitals patient states she is too weak to stand.
[2020-05-29 17:10] LABS: ABG BASE EXCESS -1.1 mmol/L (-2.0-2.0); ABG HCO3 33.2 mmol/L (22.0-26.0); ABG PCO2 (T) 139.1 mmHg (32.0-45.0); ABG PO2 (T) 86.1 mmHg (75.0-100.0); ALLEN'S TEST POSITIVE; FCOHb 0.9 % (0.0-3.9); FMetHb 0.2 % (0.0-1.5); TOTAL HEMOGLOBIN 11.5 G/dl (12.0-16.0)
--- NOTE | 2020-05-29 18:12 | NUR ---
Problems reprioritized. Patient report given, questions answered & plan of care reviewed with Nolberto RN and Violet ASHRAF.
--- NOTE | 2020-05-29 18:25 | NUR ---
Patient in room PCU 3017. I have received report from Sally ASHRAF and had the opportunity to ask questions and assume patient care.
--- NOTE | 2020-05-29 18:35 | NUR ---
Patient in room PCU 3017. I have received report from ANDRIY Zavala and had the opportunity to ask questions and assume patient care.
--- NOTE | 2020-05-29 22:47 | NUR ---
Discussed patient condition with Dr. Caldwell. Patient is restless on bipap. Dr. Caldwell ordered 0.5mg ativan IV Q4 PRN.
[2020-05-29] MEDS: LORazepam 2 mg/ml vial IV PRN (23:20)
--- NOTE | 2020-05-29 23:20 | NUR ---
Observed Violet ASHRAF administer Ativan appropriately. Bottle placed in sharps container, unable to scan medication.
[2020-05-30] VITALS (8 sets, daily range): BP systolic 92–110; BP diastolic 30–62
[2020-05-30] MEDS: LORazepam 2 mg/ml vial IV PRN ×2 (04:15→20:37)
--- NOTE | 2020-05-30 06:20 | NUR ---
Problems reprioritized. Patient report given, questions answered & plan of care reviewed with ANDRIY Lovell.
--- NOTE | 2020-05-30 06:20 | NUR ---
orientee Medication Administration: For this medication-pass time frame, all medication were reviewed, dispensed, administered and documented per hospital policy by Violet ASHRAF. Gustavo Medication Administration: For this medication-pass time frame, all medication were reviewed, dispensed, administered and documented per hospital policy by Violet ASHRAF.
--- NOTE | 2020-05-30 06:20 | NUR ---
Problems reprioritized. Patient report given, questions answered & plan of care reviewed with Debra ASHRAF.
--- NOTE | 2020-05-30 06:22 | NUR ---
Patient in room PCU 3017. I have received report from Nolberto ASHRAF and Violet RN and had the opportunity to ask questions and assume patient care.
--- NOTE | 2020-05-30 07:29 | NUR ---
Page Sent promotional table spacer PAGER ID: [phone] MESSAGE: [id number] Meredith. Can I please get a repeat ABG for this patient her pCO2 was 139 and pH6.9 last night . Thanks Sally [phone]
[2020-05-30] MEDS: K and/or MAG REPLACEMENT MC SCH ×2 (08:00→20:00)
[2020-05-30] MEDS: lactose-reduced food (Ensure Enlive) - 237ml bottle PO SCH ×3 (08:00→18:00)
[2020-05-30] MEDS: piperacillin/tazo 4.5gm/100ml 100 ML IV SCH ×2 (09:05→20:34)
[2020-05-30] MEDS: lactobacillus rhamnosus 10,000 MMU CELLS/CAPSULE PO SCH ×2 (09:06→20:36)
[2020-05-30] MEDS: docusate sod 100mg capsule PO SCH ×2 (09:06→20:36)
[2020-05-30] MEDS: fluticasone nasal spray 16GM bottle NS SCH (09:06)
[2020-05-30] MEDS: mineral oil/petrolatum, white cream 113gm jar TP SCH ×2 (09:08→20:37)
[2020-05-30] MEDS: heparin, porcine 5000 units/ml vial SQ SCH ×2 (09:08→20:37)
--- NOTE | 2020-05-30 12:08 | NUR ---
Patient refusing bipap stating someone told her she did not need it. I told her she did and educated her about her CO2 and Ph yesterday and how she became obtunded. Patient still refusing. Received bedside order from Dr. Snyder for repeat ABG.
[2020-05-30 14:05] LABS: ABG BASE EXCESS -1.8 mmol/L (-2.0-2.0); ABG HCO3 29.2 mmol/L (22.0-26.0); ABG OXYGEN SATURATION 97.9 % (94-97); ABG PCO2 (T) 91.6 mmHg (32.0-45.0); ABG PO2 (T) 134.9 mmHg (75.0-100.0); ALLEN'S TEST POSITIVE; FCOHb 0.7 % (0.0-3.9); FLOW 7 L/min; FMetHb 0.3 % (0.0-1.5); FO2Hb 96.9 % (94-97); TOTAL HEMOGLOBIN 10.9 G/dl (12.0-16.0)
--- NOTE | 2020-05-30 14:27 | NUR ---
patient returned to bipap after lunch
[2020-05-30 17:07] LABS: BASOPHILS % (AUTO) 0.1 % (0-1); EOSINOPHILS # (AUTO) 0.1 X10'3 (0-0.9); EOSINOPHILS % (AUTO) 0.4 % (0-6); HEMOGLOBIN 9.9 g/dl (12.0-16.0); MONOCYTES # (AUTO) 0.9 X10'3 (0-0.9); NEUTROPHILS # (AUTO) 6.6 X10'3 (1.8-7.7)
[2020-05-30 17:09] LABS: HEMATOCRIT 32.4 % (35.0-45.0); LYMPHOCYTES # (AUTO) 12.5 X10'3 (1.1-4.8); LYMPHOCYTES % (AUTO) 62.1 % (21-51); MEAN CORPUSCULAR HEMOGLOBIN 29.2 PG (27.0-31.0); MEAN CORPUSCULAR HGB CONC 30.7 g/dL (33.0-36.5); MEAN CORPUSCULAR VOLUME 95.2 FL (78-98); MEAN PLATELET VOLUME 8.2 FL (7.4-10.4); MONOCYTES % (AUTO) 4.5 % (2-12); NEUTROPHILS % (AUTO) 32.9 % (42-75); PLATELET COUNT 164 X10'3 (140-440); RED CELL DISTRIBUTION WIDTH 14.7 % (11.5-14.5); WHITE BLOOD COUNT 20.1 X10'3 (4.5-11.0)
[2020-05-30 17:11] LABS: ALBUMIN 2.8 G/DL (3.4-5.0); ANION GAP 7 (8-16); BLOOD UREA NITROGEN 61 MG/DL (7-18); BUN/CREATININE RATIO 20.1 (6.6-38.0); CALCIUM 8.8 MG/DL (8.5-10.1); CHLORIDE 107 MMOL/L (99-107); CREATININE 3.03 MG/DL (0.40-0.90); GLUCOSE 112 MG/DL (70-104); POTASSIUM 4.7 MMOL/L (3.5-5.1); SODIUM 143 MMOL/L (135-145); TOTAL CARBON DIOXIDE 29.1 MMOL/L (24-32); eGFR 15 ML/MIN
[2020-05-30 18:20] LABS: TOTAL CELLS COUNTED 100
[2020-05-30 18:21] LABS: BASOPHILS % (MANUAL) 1 % (0-1); LYMPHOCYTES % (MANUAL) 47 % (21-51); MONOCYTES % (MANUAL) 3 % (2-12); REACTIVE LYMPHOCYTES % 23 % (0-0)
[2020-05-30 18:22] LABS: HYPOCHROMASIA 1+; PLATELET ESTIMATE NORMAL; SMUDGE CELLS 3+; STOMATOCYTES 1+
--- NOTE | 2020-05-30 18:26 | NUR ---
Problems reprioritized. Patient report given, questions answered & plan of care reviewed with Nolberto RN and Violet ASHRAF.
--- NOTE | 2020-05-30 18:39 | NUR ---
Paged Dr Snyder: [phone] MESSAGE: Jesenia Castelan [id number]--10 run beat of V-tach. K is 4.7. Has been having ectopy in sinus rhythm - sinus tach. Can we get an order for a Mg draw? [phone] ANDRIY Lazo
[2020-05-31 03:00] VITALS: BP 131/76
--- NOTE | 2020-05-31 05:50 | NUR ---
Collette for Ensure Enlive can 05/29/20 1800 for 05/30 1800. Unable to undo medication administration in eMAR.
[2020-05-31 06:00] VITALS: BP 100/52
--- NOTE | 2020-05-31 06:00 | NUR ---
Patient in room PCU 3017. I have received report from LIZZY ASHRAF and had the opportunity to ask questions and assume patient care.
--- NOTE | 2020-05-31 06:20 | NUR ---
Patient in room PCU 3017. I have received report from Nolberto ASHRAF and had the opportunity to ask questions and assume patient care.
--- NOTE | 2020-05-31 06:24 | NUR ---
orientee Medication Administration: For this medication-pass time frame, all medication were reviewed, dispensed, administered and documented per hospital policy by Violet ASHRAF. Orientee Medication Administration: For this medication-pass time frame, all medication were reviewed, dispensed, administered and documented per hospital policy by Violet ASHRAF. Problems reprioritized. Patient report given, questions answered & plan of care reviewed with Hay ASHRAF.
--- NOTE | 2020-05-31 06:26 | NUR ---
Problems reprioritized. Patient report given, questions answered & plan of care reviewed with ANDRIY Guido.
[2020-05-31] MEDS: K and/or MAG REPLACEMENT MC SCH (08:00)
[2020-05-31] MEDS: piperacillin/tazo 4.5gm/100ml 100 ML IV SCH (08:22)
[2020-05-31] MEDS: heparin, porcine 5000 units/ml vial SQ SCH (08:24)
[2020-05-31] MEDS: fluticasone nasal spray 16GM bottle NS SCH (08:24)
[2020-05-31] MEDS: lactobacillus rhamnosus 10,000 MMU CELLS/CAPSULE PO SCH (08:25)
[2020-05-31] MEDS: docusate sod 100mg capsule PO SCH (08:25)
[2020-05-31] MEDS: mineral oil/petrolatum, white cream 113gm jar TP SCH (08:27)
[2020-05-31] MEDS: lactose-reduced food (Ensure Enlive) - 237ml bottle PO SCH ×2 (08:27→13:53)
[2020-05-31 11:00] VITALS: BP 103/53
--- NOTE | 2020-05-31 12:10 | NUR ---
PATIENT CURRENTLY USING A WIGILLIAN CATH Addendum: 05/31/20 at 1216 by Gissel Preston RN Amended: Links added.
[2020-05-31 15:00] VITALS: BP 105/50
[2020-05-31 15:51] LABS: ALBUMIN 2.7 G/DL (3.4-5.0); ANION GAP 5 (8-16); BLOOD UREA NITROGEN 58 MG/DL (7-18); BUN/CREATININE RATIO 21.1 (6.6-38.0); CALCIUM 9.2 MG/DL (8.5-10.1); CHLORIDE 109 MMOL/L (99-107); CREATININE 2.75 MG/DL (0.40-0.90); GLUCOSE 149 MG/DL (70-104); POTASSIUM 4.6 MMOL/L (3.5-5.1); SODIUM 147 MMOL/L (135-145); TOTAL CARBON DIOXIDE 32.6 MMOL/L (24-32); eGFR 17 ML/MIN
--- NOTE | 2020-05-31 17:20 | NUR ---
Orientee documentation: I have reviewed and agree with all interventions, assessments performed and documented by Gissel ASHRAF.
--- NOTE | 2020-05-31 17:40 | NUR ---
CALLED REPORT TO [facility] AT 1500, SPOKE WITH INDY ON LTAC. PATIENTS WAS STABLE PER MD ORDERS, MIDLINE WAS SALINE LOCKED, TELE WAS TAKEN OFF AND RETURNED, WICK CATH WAS REMOVED, ALL PERSONAL BELONGINGS WERE SENT WITH PATIENT. [facility] LEFT WITH PATIENT VIA GURNEY AT 1720, ALL VITAL SIGNS WERE IN NORMAL RANGE BEFORE DEPARTURE.
[2020-06-06] MEDS ORDERED: MONT10TA26 PO (10:45)
== END 2020-05-31 17:20 | DRG 871 ==
LOC: ER 14:28 → ED HOLD 18:03 → ORTHO 4S 22:50 → SUR 3N 05-26 15:57 → PCU 3S 05-27 14:15
PROVIDERS: ADMIT Internal Medicine; ATTEND Internal Medicine
PROC: 5A09357 Assistance with Respiratory Ventilation, Less than 24 Consecutive Hours, Continuous Positive Airway Pressure (ICD-10-PCS; principal; 2020-05-27)
PROC: 5A09357 Assistance with Respiratory Ventilation, Less than 24 Consecutive Hours, Continuous Positive Airway Pressure (ICD-10-PCS; 2020-05-28)
PROC: 5A09457 Assistance with Respiratory Ventilation, 24-96 Consecutive Hours, Continuous Positive Airway Pressure (ICD-10-PCS; 2020-05-29)
DX: A41.9 Sepsis, unspecified organism (principal); N17.0 Acute kidney failure with tubular necrosis; G93.41 Metabolic encephalopathy; J96.20 Acute and chronic respiratory failure, unspecified whether with hypoxia or hypercapnia; N39.0 Urinary tract infection, site not specified; Z68.43 Body mass index [BMI] 50.0-59.9, adult; I13.0 Hypertensive heart and chronic kidney disease with heart failure and stage 1 through stage 4 chronic kidney disease, or unspecified chronic kidney disease; E66.2 Morbid (severe) obesity with alveolar hypoventilation; E86.9 Volume depletion, unspecified; Z66 Do not resuscitate; I50.9 Heart failure, unspecified; Z60.2 Problems related to living alone; R59.0 Localized enlarged lymph nodes; I35.9 Nonrheumatic aortic valve disorder, unspecified; S91.101A Unspecified open wound of right great toe without damage to nail, initial encounter; J44.9 Chronic obstructive pulmonary disease, unspecified; X58.XXXA Exposure to other specified factors, initial encounter; R31.9 Hematuria, unspecified; N18.9 Chronic kidney disease, unspecified; Z74.01 Bed confinement status; Z90.49 Acquired absence of other specified parts of digestive tract; Z99.81 Dependence on supplemental oxygen; Y93.89 Activity, other specified; Y92.89 Other specified places as the place of occurrence of the external cause; Y99.8 Other external cause status
CPT/HCPCS: 36415; 36600; 71045; 71046; 71250; 74176; 76937; 80048; 80053; 81001; 82803; 83605; 83735; 84132; 84145; 84484; 85007; 85018; 85025; 86140; 87040; 87081; 87088; 93005; 93306; 93970; 94660; 94760; 96374; 97110; 97161; 97530; 97535; 99285; G0378; J0696; J1644; J1940; J2060; J2543; J3490; J7030; Q9963

== ENCOUNTER 2020-06-04 16:43 | Inpatient (IN) | payer MEDICARE, MEDICAID ==
[~2020-06-04] VITALS: Ht 165.1 cm; Wt 166.5 kg
[~2020-06-04 16:43] MED LIST changes: -ALBU1.257 NEB; +FLUT16SP20 BOTHNARES; +GABA-530 PO; +LORA10TA7 PO; +OMEP-50 PO
[2020-06-04] MEDS ORDERED: albuterol 2.5 MG/3 ML nebule CONTNEB PRN (16:45)
[2020-06-04] MEDS ORDERED: ipratropium 0.5 MG/2.5ML nebule IH ONE (16:45)
--- NOTE | 2020-06-04 17:00 | NUR ---
PLACED ON BIPAP FIO2 50%
[2020-06-04 17:06] LABS: ABG BASE EXCESS -0.3 mmol/L (-2.0-2.0); ABG HCO3 30.9 mmol/L (22.0-26.0); ABG OXYGEN SATURATION 96.3 % (94-97); ABG PCO2 (T) 95.7 mmHg (32.0-45.0); ABG PO2 (T) 92.1 mmHg (75.0-100.0); ALLEN'S TEST POSITIVE; FLOW 10 L/min; FMetHb 0.1 % (0.0-1.5); FO2Hb 95.2 % (94-97); TOTAL HEMOGLOBIN 11.3 G/dl (12.0-16.0)
[2020-06-04] MEDS ORDERED: methylPREDNISolone sod succ 125mg/2ml vial IV ONE (17:10)
--- NOTE | 2020-06-04 17:17 | NUR ---
PER LAB RAPID COVID IS NEGATIVE ANDRIY DUKE AND DR PRINCE INFORMED
--- NOTE | 2020-06-04 17:32 | NUR ---
PATIENT NOTED WHEEZING,NOT ON DISTRESS,PAGED HOSPITALIST FOR PRN BREATHING TX.MED REC PARTIALLY COMPLETED,PATIENT STATES HE'LL CALL FAMILY FOR ATIVAN DOSE. Addendum: 06/04/20 at 1734 by CHERIE INCORRECT PATIENT.
[2020-06-04] MEDS: normal saline 1000ml 1,000 ML IV SCH (17:50)
[2020-06-04 18:56] LABS: ABG BASE EXCESS -1.6 mmol/L (-2.0-2.0); ABG HCO3 26.7 mmol/L (22.0-26.0); ABG OXYGEN SATURATION 94.8 % (94-97); ABG PCO2 (T) 63.2 mmHg (32.0-45.0); ABG PO2 (T) 72.6 mmHg (75.0-100.0); ALLEN'S TEST POSITIVE; FCOHb 1.1 % (0.0-3.9); FO2Hb 93.8 % (94-97); PATIENT TEMPERATURE 36.6; RESPIRATORY RATE 25 b/min; TOTAL HEMOGLOBIN 10.6 G/dl (12.0-16.0)
[2020-06-04 19:16] LABS: ALANINE AMINOTRANSFERASE 31 U/L (12-78); ALBUMIN 2.9 G/DL (3.4-5.0); ALBUMIN/GLOBULIN RATIO 0.7 (1.1-1.5); ALKALINE PHOSPHATASE 58 IU/L (46-116); ANION GAP 8 (8-16); ASPARTATE AMINO TRANSFERASE 19 U/L (10-37); BILIRUBIN,TOTAL 0.3 MG/DL (0.1-1.0); BLOOD UREA NITROGEN 76 MG/DL (7-18); BUN/CREATININE RATIO 14.3 (6.6-38.0); CALCIUM 8.9 MG/DL (8.5-10.1); CHLORIDE 107 MMOL/L (99-107); CREATININE 5.32 MG/DL (0.40-0.90); GLUCOSE 99 MG/DL (70-104); POTASSIUM 5.8 MMOL/L (3.5-5.1); SODIUM 145 MMOL/L (135-145); TOTAL CARBON DIOXIDE 30.1 MMOL/L (24-32); eGFR 8 ML/MIN
[2020-06-04 19:22] LABS: C-REACTIVE PROTEIN 2.45 MG/DL (0.0-0.5); LACTATE DEHYDROGENASE 225 U/L (81-234); PHOSPHORUS 7.5 MG/DL (2.3-4.5)
[2020-06-04] MEDS ORDERED: PIPE4.5F6 IV (19:49)
[2020-06-04] MEDS ORDERED: ATR0.5NEB IH (19:49)
[2020-06-04] MEDS ORDERED: MELA3TAB39 PO (19:49)
[2020-06-04] MEDS ORDERED: LACT1CAP75 PO (19:49)
[2020-06-04] MEDS ORDERED: ALB0.5UD IH (19:49)
--- NOTE | 2020-06-04 19:53 | NUR ---
SHEMAR SIERRA CAREGIVER [phone]. GAVE HER UPDATE. PT WILL BE ADMITTED AND GOING TO THE PCU FLOOR.
[2020-06-04] MEDS ORDERED: HEPA100D36 SQ (19:55)
[2020-06-04 20:19] LABS: BASOPHILS % (AUTO) 0.1 % (0-1); EOSINOPHILS % (AUTO) 0.1 % (0-6); HEMATOCRIT 30.1 % (35.0-45.0); HEMOGLOBIN 9.2 g/dl (12.0-16.0); LYMPHOCYTES # (AUTO) 14.1 X10'3 (1.1-4.8); LYMPHOCYTES % (AUTO) 64.2 % (21-51); MEAN CORPUSCULAR HEMOGLOBIN 29.7 PG (27.0-31.0); MEAN CORPUSCULAR HGB CONC 30.7 g/dL (33.0-36.5); MEAN CORPUSCULAR VOLUME 96.7 FL (78-98); MEAN PLATELET VOLUME 8.6 FL (7.4-10.4); MONOCYTES # (AUTO) 0.2 X10'3 (0-0.9); NEUTROPHILS # (AUTO) 7.6 X10'3 (1.8-7.7); NEUTROPHILS % (AUTO) 34.6 % (42-75); PLATELET COUNT 140 X10'3 (140-440); RED BLOOD COUNT 3.11 X10'6 (4.20-5.60); RED CELL DISTRIBUTION WIDTH 15.1 % (11.5-14.5); WHITE BLOOD COUNT 21.9 X10'3 (4.5-11.0)
--- NOTE | 2020-06-04 20:28 | NUR ---
med rec addressed. pt came over with a MAR from [employer] - the meds which were on the MAR were entered into [employer]. There were other meds that were current on the external med hx but they were not currently being given to pt according the the MAR therefore they were not "reviewed" in the system.
[2020-06-04 21:10] LABS: PLATELET ESTIMATE NORMAL; TOTAL CELLS COUNTED 100
[2020-06-04] MEDS ORDERED: acetaminophen 325mg tablet PO PRN (21:10)
[2020-06-04] MEDS ORDERED: magnesium hydroxide 30ml (MOM) UD suspension PO PRN (21:10)
[2020-06-04] MEDS ORDERED: mag hydrox/Alum hydrox/simeth 30ml oral suspension PO PRN (21:10)
[2020-06-04] MEDS ORDERED: ondansetron/PF 4mg/2ml inj IV PRN (21:10)
[2020-06-04 21:12] LABS: HYPOCHROMASIA 1+
[2020-06-04] MEDS ORDERED: ipratropium/albuterol 3ml nebule NEB PRN (21:15)
[2020-06-04] MEDS ORDERED: albuterol 2.5 MG/3 ML nebule NEB PRN (21:15)
--- NOTE | 2020-06-04 23:10 | NUR ---
Patient in room U 3011. I have received report from Negin ASHRAF and had the opportunity to ask questions and assume patient care. Addendum: 06/05/20 at 0116 by Roshni Diggs RN Amended: Links added.
[2020-06-04 23:40] VITALS: BP 130/48
--- NOTE | 2020-06-04 23:40 | NUR ---
Pt. arrived ob floor via garney accompanied by ED ANDRIY Kam. Pt . alert and oriented at this time. Bipap in place with Fio2 of 35%. Pt. denies c/o SOB at this time. Pt. experiencing large loose stools; cleaned pt. changed linen, and assisted pt in a comfortable position. Currently inprecautionary isolation pendinging C-diff r/o with sample pending. Call light within reach and bed in low position.. Addendum: 06/05/20 at 0114 by Roshni Diggs RN Amended: Links added.
--- NOTE | 2020-06-05 00:53 | NUR ---
Received pt from ED via [place] accompanied by Ed nurse Negin. Pt. A & O at this time satinder to answer questions appropriately. Pt. on BIPAP at 35% fo2 with c/o no SOB at this time. Lissett
[2020-06-05 02:00] VITALS: BP 134/42
[2020-06-05] MEDS: vancomycin 125mg/5ml ORAL solution 5ml UD bottle PO SCH ×3 (03:04→14:00)
--- NOTE | 2020-06-05 04:00 | NUR ---
Skin check witnessed with two RNs but co-signature failed on the second RN signature; Willis
--- NOTE | 2020-06-05 04:29 | NUR ---
Pt. with another large loose green in color diarrhea. Cleaned pt. and changed linen. Addendum: 06/05/20 at 0532 by Roshni Diggs RN Amended: Links added.
--- NOTE | 2020-06-05 05:00 | NUR ---
Multiple discoloration to lower extremities noted. Rt lower lateral aspect with a new skin tear. Picture taken and filed. Addendum: 06/05/20 at 0707 by Roshni Diggs RN Amended: Links added.
--- NOTE | 2020-06-05 05:05 | NUR ---
Pt. with large lose stools x 3 times this shift. Cleaned pt. and changed linen and gown during those episodes. Addendum: 06/05/20 at 0754 by Roshni Diggs RN Amended: Links added.
[2020-06-05 05:56] LABS: BASOPHILS % (AUTO) 0.1 % (0-1); EOSINOPHILS % (AUTO) 0 % (0-6); HEMOGLOBIN 8.8 g/dl (12.0-16.0); MONOCYTES # (AUTO) 0.2 X10'3 (0-0.9); NEUTROPHILS # (AUTO) 7.4 X10'3 (1.8-7.7); PLATELET COUNT 140 X10'3 (140-440); RED CELL DISTRIBUTION WIDTH 14.6 % (11.5-14.5)
[2020-06-05 05:58] LABS: HEMATOCRIT 28.6 % (35.0-45.0); LYMPHOCYTES # (AUTO) 19.9 X10'3 (1.1-4.8); LYMPHOCYTES % (AUTO) 72.4 % (21-51); MEAN CORPUSCULAR HEMOGLOBIN 29.3 PG (27.0-31.0); MEAN CORPUSCULAR HGB CONC 30.7 g/dL (33.0-36.5); MEAN CORPUSCULAR VOLUME 95.4 FL (78-98); MEAN PLATELET VOLUME 8.7 FL (7.4-10.4); MONOCYTES % (AUTO) 0.6 % (2-12); NEUTROPHILS % (AUTO) 26.9 % (42-75)
--- NOTE | 2020-06-05 06:00 | NUR ---
Patient in room PCU 3011. I have received report from Roshni ASHRAF and had the opportunity to ask questions and assume patient care.
[2020-06-05 06:08] LABS: ALANINE AMINOTRANSFERASE 31 U/L (12-78); ALBUMIN 2.8 G/DL (3.4-5.0); ALBUMIN/GLOBULIN RATIO 0.7 (1.1-1.5); ALKALINE PHOSPHATASE 53 IU/L (46-116); ANION GAP 13 (8-16); ASPARTATE AMINO TRANSFERASE 18 U/L (10-37); BILIRUBIN,TOTAL 0.3 MG/DL (0.1-1.0); BLOOD UREA NITROGEN 85 MG/DL (7-18); BUN/CREATININE RATIO 15.7 (6.6-38.0); CALCIUM 8.7 MG/DL (8.5-10.1); CHLORIDE 105 MMOL/L (99-107); CREATININE 5.42 MG/DL (0.40-0.90); GLUCOSE 112 MG/DL (70-104); POTASSIUM 5.1 MMOL/L (3.5-5.1); SODIUM 145 MMOL/L (135-145); TOTAL CARBON DIOXIDE 27.1 MMOL/L (24-32); TOTAL PROTEIN 6.6 G/DL (6.4-8.2); eGFR 8 ML/MIN
[2020-06-05 06:59] LABS: WHITE BLOOD COUNT 27.4 X10'3 (4.5-11.0)
[2020-06-05 07:00] VITALS: BP 131/58
[2020-06-05] MEDS: normal saline 1000ml 1,000 ML IV SCH ×4 (07:41→23:53)
[2020-06-05] MEDS: heparin, porcine 5000 units/ml vial SQ SCH ×2 (07:51→20:07)
[2020-06-05 08:09] LABS: TOTAL CELLS COUNTED 100
[2020-06-05 08:11] LABS: PLATELET ESTIMATE NORMAL
[2020-06-05 08:12] LABS: HYPOCHROMASIA 1+; POLYCHROMASIA FEW; STOMATOCYTES 1+
[2020-06-05] MEDS ORDERED: LIDOcaine 2% 10ml TOPICAL JELLY (Urojet) TP ONE (10:20)
[2020-06-05 11:00] VITALS: BP 112/56
[2020-06-05 12:48] LABS: BASOPHILS % (AUTO) 0.1 % (0-1); EOSINOPHILS % (AUTO) 0 % (0-6); HEMOGLOBIN 8.4 g/dl (12.0-16.0); MONOCYTES % (AUTO) 1.3 % (2-12); RED CELL DISTRIBUTION WIDTH 14.7 % (11.5-14.5)
[2020-06-05 12:49] LABS: HEMATOCRIT 27.2 % (35.0-45.0); LYMPHOCYTES # (AUTO) 19.6 X10'3 (1.1-4.8); LYMPHOCYTES % (AUTO) 73.3 % (21-51); MEAN CORPUSCULAR HEMOGLOBIN 29.3 PG (27.0-31.0); MEAN CORPUSCULAR HGB CONC 30.8 g/dL (33.0-36.5); MEAN CORPUSCULAR VOLUME 95.1 FL (78-98); MEAN PLATELET VOLUME 8.9 FL (7.4-10.4); MONOCYTES # (AUTO) 0.3 X10'3 (0-0.9); NEUTROPHILS # (AUTO) 6.8 X10'3 (1.8-7.7); NEUTROPHILS % (AUTO) 25.3 % (42-75); PLATELET COUNT 136 X10'3 (140-440); RED BLOOD COUNT 2.86 X10'6 (4.20-5.60)
[2020-06-05 13:01] LABS: WHITE BLOOD COUNT 26.8 X10'3 (4.5-11.0)
--- NOTE | 2020-06-05 13:03 | NUR ---
Page Sent promotional table spacer PAGER ID: [phone] MESSAGE: [id number] Flip. Critical WBC 26.8 peace 80
[2020-06-05 13:35] LABS: C DIFF ANTIGEN NEGATIVE (NEGATIVE); C DIFF SPECIMEN=DIARRHEA? ACCEPTABLE; C DIFFICILE TOXINS A&B NEGATIVE (Neg)
[2020-06-05 15:00] VITALS: BP 155/58
[2020-06-05 15:11] LABS: CLARITY,URINE SLIGHTLY CLOUDY (Clear); COLOR,URINE YELLOW (Yellow); GLUCOSE, URINE NEGATIVE (Neg); KETONES,URINE NEGATIVE (Neg); LEUKOCYTE ESTERASE ,URINE TRACE (Neg); NITRITES, URINE NEGATIVE (Neg); OCCULT BLOOD,URINE MODERATE (Neg); PROTEIN,URINE 30 mg/dl (Neg); UROBILINOGEN,URINE 0.2 E.U/dL (0.2-1.0)
[2020-06-05 15:13] LABS: UA COLLECTION TYPE NON-SPECIFIED
[2020-06-05 15:19] LABS: SQUAMOUS EPITHELIAL CELL,UR FEW /LPF (FEW)
[2020-06-05 15:20] LABS: AMORPHOUS URATES 3+
[2020-06-05 15:22] LABS: TRANSITIONAL EPI CELLS,URINE FEW /HPF
[2020-06-05 15:25] LABS: CAL OXALATE CRYSTALS FEW /HPF (NEGATIVE)
[2020-06-05 15:27] LABS: BACTERIA,URINE FEW /HPF (Neg); RENAL CELLS, URINE FEW /HPF
[2020-06-05 15:28] LABS: YEAST MODERATE /HPF (NEGATIVE)
--- NOTE | 2020-06-05 15:29 | NUR ---
1400 vanco not given after asking pharmacy to retime after it was not brought up by pharmacy earlier today. Per telephone conversation with Franky just hold 1400 dose and continue on reg schedule
[2020-06-05 15:47] LABS: UA EOSINOPHILS NO EOS /HPF
[2020-06-05 17:54] LABS: ALANINE AMINOTRANSFERASE 30 U/L (12-78); ALBUMIN 2.9 G/DL (3.4-5.0); ALBUMIN/GLOBULIN RATIO 0.8 (1.1-1.5); ALKALINE PHOSPHATASE 53 IU/L (46-116); ANION GAP 10 (8-16); ASPARTATE AMINO TRANSFERASE 15 U/L (10-37); BILIRUBIN,TOTAL 0.3 MG/DL (0.1-1.0); BLOOD UREA NITROGEN 86 MG/DL (7-18); BUN/CREATININE RATIO 15.7 (6.6-38.0); CALCIUM 8.6 MG/DL (8.5-10.1); CHLORIDE 106 MMOL/L (99-107); CREATININE 5.48 MG/DL (0.40-0.90); GLUCOSE 131 MG/DL (70-104); POTASSIUM 4.3 MMOL/L (3.5-5.1); SODIUM 145 MMOL/L (135-145); TOTAL CARBON DIOXIDE 28.8 MMOL/L (24-32); TOTAL PROTEIN 6.6 G/DL (6.4-8.2); eGFR 8 ML/MIN
[2020-06-05] MEDS ORDERED: CefTRIAXone 2gm/D5W 50ml BAG 50 ML IV ONE (17:55)
[2020-06-05 18:00] VITALS: BP 157/57
--- NOTE | 2020-06-05 18:00 | NUR ---
Patient in room PCU 3011. I have received report from Sally ASHRAF and had the opportunity to ask questions and assume patient care.
--- NOTE | 2020-06-05 18:14 | NUR ---
Problems reprioritized. Patient report given, questions answered & plan of care reviewed with Violet ASHRAF.
[2020-06-05 22:00] VITALS: BP 141/61
[2020-06-06] VITALS (8 sets, daily range): BP systolic 101–152; BP diastolic 48–81
--- NOTE | 2020-06-06 03:28 | NUR ---
O2 sats would drop in the 80's, would fiddle with the finger probe and it would go up in the 90's. After doing this a few times I changed the pulse oximeter adhesive sensor. Will continue to monitor
[2020-06-06] MEDS: normal saline 1000ml 1,000 ML IV SCH ×3 (06:17→20:29)
--- NOTE | 2020-06-06 06:25 | NUR ---
Problems reprioritized. Patient report given, questions answered & plan of care reviewed with Sally ASHRAF.
--- NOTE | 2020-06-06 06:32 | NUR ---
tele grout sewer line repairer notified me patient has been in Afib with RVR since 519. with HR sustaining in the 120s-130s. Dr. Badillo was paged.
[2020-06-06 06:33] LABS: ALANINE AMINOTRANSFERASE 30 U/L (12-78); ALBUMIN 2.8 G/DL (3.4-5.0); ALBUMIN/GLOBULIN RATIO 0.8 (1.1-1.5); ALKALINE PHOSPHATASE 50 IU/L (46-116); ANION GAP 8 (8-16); ASPARTATE AMINO TRANSFERASE 18 U/L (10-37); BILIRUBIN,TOTAL 0.2 MG/DL (0.1-1.0); BLOOD UREA NITROGEN 88 MG/DL (7-18); BUN/CREATININE RATIO 16.6 (6.6-38.0); CALCIUM 8.7 MG/DL (8.5-10.1); CHLORIDE 108 MMOL/L (99-107); GLUCOSE 91 MG/DL (70-104); HEMOGLOBIN 8.9 g/dl (12.0-16.0); MEAN CORPUSCULAR HGB CONC 31.5 g/dL (33.0-36.5); MEAN PLATELET VOLUME 8.6 FL (7.4-10.4); POTASSIUM 4.1 MMOL/L (3.5-5.1); RED BLOOD COUNT 2.93 X10'6 (4.20-5.60); SODIUM 146 MMOL/L (135-145); TOTAL CARBON DIOXIDE 30.2 MMOL/L (24-32); TOTAL PROTEIN 6.4 G/DL (6.4-8.2); eGFR 8 ML/MIN
--- NOTE | 2020-06-06 06:33 | NUR ---
Patient in room PCU 3011. I have received report from Violet ASHRAF and had the opportunity to ask questions and assume patient care. Patient HR in Afib with RVR since 519 Dr. Badillo notified at 0630 by me.
[2020-06-06 06:35] LABS: BASOPHILS % (AUTO) 0.1 % (0-1); EOSINOPHILS % (AUTO) 0 % (0-6); HEMATOCRIT 28.1 % (35.0-45.0); LYMPHOCYTES # (AUTO) 15.8 X10'3 (1.1-4.8); MEAN CORPUSCULAR HEMOGLOBIN 30.2 PG (27.0-31.0); MEAN CORPUSCULAR VOLUME 95.9 FL (78-98); MONOCYTES # (AUTO) 0.7 X10'3 (0-0.9); MONOCYTES % (AUTO) 3.4 % (2-12); NEUTROPHILS # (AUTO) 5.6 X10'3 (1.8-7.7); NEUTROPHILS % (AUTO) 25.3 % (42-75); PLATELET COUNT 135 X10'3 (140-440); WHITE BLOOD COUNT 22.2 X10'3 (4.5-11.0)
--- NOTE | 2020-06-06 06:42 | NUR ---
received telephone order from Dr. Badillo for one time 10mg IV push of diltiazem for pt in Afib with RVR sine 0581.
[2020-06-06] MEDS ORDERED: diltiazem 5mg/ml 5ml inj. IV ONE (06:45)
[2020-06-06] MEDS: heparin, porcine 5000 units/ml vial SQ SCH ×2 (08:23→20:20)
[2020-06-06] MEDS: fluconazole-Diflucan 100MG/NS 50 ML IV SCH (08:24)
[2020-06-06 09:21] LABS: SMUDGE CELLS 3+; TOTAL CELLS COUNTED 100
[2020-06-06 09:25] LABS: PLATELET ESTIMATE NORMAL
[2020-06-06 09:27] LABS: SPHEROCYTES 1+
[2020-06-06 09:28] LABS: LYMPHOCYTES % (AUTO) 71.2 % (21-51)
[2020-06-06] MEDS ORDERED: diltiazem CD 120mg capsule (once-daily) PO STA (09:36)
--- NOTE | 2020-06-06 09:59 | NUR ---
I received a verbal order for 240mg cardizem PO once now for a sustained HR 120s- 130s with increased ectopy since yesterday and going into and out of accelerated idioventricular rate
[2020-06-06] MEDS ORDERED: CHOL500049 PO (10:45)
[2020-06-06] MEDS ORDERED: MONT10TA97 PO (10:45)
--- NOTE | 2020-06-06 15:21 | NUR ---
patient still non-compliant on bipap. She keeps taking it off without help and oxygen levels go down into the 80s. She was educated again that she cannot take the bipap off by herself because she can put herself into respiratory distress/failure. Patient able to maintain on 5L NC for short amounts of time off bipap
--- NOTE | 2020-06-06 16:05 | NUR ---
PRESSURE ULCER EDUCATION: DEFINITION: A pressure ulcer is an area of skin that breaks down when you stay in one position too long. The constant pressure against the skin reduces the blood flow to that area and the affected tissue dies. CAUSES: "Being bedridden or in a wheelchair "Fragile skin "Having a chronic condition, such as diabetes or vascular disease "Inability to move certain parts of your body without assistance "Older age "Incontinence of urine or stool SYMPTOMS: "A reddened area that DOES NOT turn white when pressed on - this can be the beginning of a pressure ulcer "A blister, deep sore or a crater - these can be advanced pressure ulcers FIRST AID: "Relieve the pressure on this area "Keep the area clean and dry "Call your primary doctor if you see any of the above symptoms "DO NOT massage the area "DO NOT use a donut shaped or ring shaped pillow- these actually interfere with the blood flow and cause complications PREVENTION: "Check for pressure ulcers everyday "Change position at least every two hours to relieve pressure "Use items that help relieve pressure- pillows, sheepskin, foam padding, and powders. "Keep skin clean and dry "Eat healthy well balanced meals "Exercise daily IF YOU SEE ANY OF THESE SYMPTOMS WHILE IN THE HOSPITAL - TELL YOUR NURSE IMMEDIATELY. IF YOU SEE ANY OF THESE SYMPTOMS WHILE AT HOME OR HAVE ANY QUESTIONS OR CONCERNS ABOUT PRESSURE ULCERS - CALL YOUR PRIMARY DOCTOR IMMEDIATELY. Addendum: 06/06/20 at 1606 by Liliana Prescott RN Amended: Links added.
[2020-06-06] MEDS ORDERED: ALBUTEROL SULFATE 5 MG IH PRN (16:25)
[2020-06-06] MEDS ORDERED: Cholecalciferol (Vitamin D3) 50,000 UNITS PO SCH (16:35)
--- NOTE | 2020-06-06 18:25 | NUR ---
Problems reprioritized. Patient report given, questions answered & plan of care reviewed with Agapito ASHRAF.
--- NOTE | 2020-06-06 18:39 | NUR ---
Patient in room PCU 3011. I have received report from Sally ASHRAF and had the opportunity to ask questions and assume patient care.
[2020-06-06] MEDS: gabapentin 100mg capsule PO SCH (20:19)
[2020-06-06] MEDS: apixaban 5mg tablet PO SCH (20:19)
[2020-06-06] MEDS: Melatonin 3mg tablet PO SCH (20:19)
[2020-06-07] VITALS (8 sets, daily range): BP systolic 102–122; BP diastolic 42–81
[2020-06-07] MEDS: normal saline 1000ml 1,000 ML IV SCH ×2 (02:54→09:25)
[2020-06-07 05:51] LABS: BASOPHILS % (AUTO) 0.1 % (0-1); EOSINOPHILS # (AUTO) 0.1 X10'3 (0-0.9); HEMATOCRIT 27.4 % (35.0-45.0); HEMOGLOBIN 8.4 g/dl (12.0-16.0); RED BLOOD COUNT 2.87 X10'6 (4.20-5.60)
[2020-06-07 05:53] LABS: EOSINOPHILS % (AUTO) 0.2 % (0-6); LYMPHOCYTES # (AUTO) 16.8 X10'3 (1.1-4.8); LYMPHOCYTES % (AUTO) 77.9 % (21-51); MEAN CORPUSCULAR HEMOGLOBIN 29.3 PG (27.0-31.0); MEAN CORPUSCULAR HGB CONC 30.7 g/dL (33.0-36.5); MEAN CORPUSCULAR VOLUME 95.6 FL (78-98); MEAN PLATELET VOLUME 8.8 FL (7.4-10.4); MONOCYTES # (AUTO) 0.6 X10'3 (0-0.9); NEUTROPHILS # (AUTO) 4.1 X10'3 (1.8-7.7); NEUTROPHILS % (AUTO) 18.8 % (42-75); PLATELET COUNT 129 X10'3 (140-440); RED CELL DISTRIBUTION WIDTH 14.6 % (11.5-14.5); WHITE BLOOD COUNT 21.6 X10'3 (4.5-11.0)
--- NOTE | 2020-06-07 06:10 | NUR ---
Problems reprioritized. Patient report given, questions answered & plan of care reviewed with Sally ASHRAF.
--- NOTE | 2020-06-07 06:25 | NUR ---
Patient in room PCU 3011. I have received report from Agapito ASHRAF and had the opportunity to ask questions and assume patient care. Patient resting comfortably on bipap
[2020-06-07] MEDS: pantoprazole 40mg Tablet.DR PO SCH ×2 (07:30→12:53)
[2020-06-07 08:41] LABS: ALANINE AMINOTRANSFERASE 32 U/L (12-78); ALBUMIN 2.6 G/DL (3.4-5.0); ALBUMIN/GLOBULIN RATIO 0.8 (1.1-1.5); ALKALINE PHOSPHATASE 45 IU/L (46-116); ANION GAP 9 (8-16); ASPARTATE AMINO TRANSFERASE 23 U/L (10-37); BILIRUBIN,TOTAL 0.2 MG/DL (0.1-1.0); BLOOD UREA NITROGEN 88 MG/DL (7-18); BUN/CREATININE RATIO 17.8 (6.6-38.0); CALCIUM 8.5 MG/DL (8.5-10.1); CHLORIDE 111 MMOL/L (99-107); CREATININE 4.95 MG/DL (0.40-0.90); GLUCOSE 90 MG/DL (70-104); MAGNESIUM 2.3 MG/DL (1.5-2.4); POTASSIUM 4.3 MMOL/L (3.5-5.1); SODIUM 147 MMOL/L (135-145); TOTAL CARBON DIOXIDE 26.9 MMOL/L (24-32); TOTAL PROTEIN 5.9 G/DL (6.4-8.2); eGFR 9 ML/MIN
[2020-06-07] MEDS: diltiazem CD 120mg capsule (once-daily) PO SCH (08:46)
[2020-06-07] MEDS: fluticasone nasal spray 16GM bottle NS SCH (08:46)
[2020-06-07] MEDS: fluconazole-Diflucan 100MG/NS 50 ML IV SCH (08:46)
[2020-06-07] MEDS: gabapentin 100mg capsule PO SCH ×2 (08:47→12:56)
[2020-06-07] MEDS: lisinopril 10 MG tablet PO SCH (08:47)
[2020-06-07] MEDS: montelukast 10mg tablet PO SCH (08:47)
[2020-06-07] MEDS: apixaban 5mg tablet PO SCH ×2 (08:47→20:49)
[2020-06-07] MEDS: loratadine 10mg tablet PO SCH (08:47)
[2020-06-07] MEDS: heparin, porcine 5000 units/ml vial SQ SCH ×2 (08:48→20:48)
[2020-06-07 10:09] LABS: SMUDGE CELLS 3+; TOTAL CELLS COUNTED 100
[2020-06-07 10:10] LABS: LARGE PLATELETS FEW; PLATELET ESTIMATE DECREASED; SPHEROCYTES FEW
[2020-06-07] MEDS: sodium chloride 0.45% 1,000 ML IV SCH (15:06)
--- NOTE | 2020-06-07 18:00 | NUR ---
Patient in room PCU 3012. I have received report from Sally ASHRAF and had the opportunity to ask questions and assume patient care.
--- NOTE | 2020-06-07 18:28 | NUR ---
Problems reprioritized. Patient report given, questions answered & plan of care reviewed with Violet ASHRAF.
[2020-06-07] MEDS: Melatonin 3mg tablet PO SCH (20:50)
[2020-06-08 02:00] VITALS: BP 111/59
[2020-06-08] MEDS: sodium chloride 0.45% 1,000 ML IV SCH ×2 (05:23→19:48)
--- NOTE | 2020-06-08 06:20 | NUR ---
Problems reprioritized. Patient report given, questions answered & plan of care reviewed with Whitney ASHRAF.
[2020-06-08 06:25] LABS: BASOPHILS % (AUTO) 0.1 % (0-1); EOSINOPHILS # (AUTO) 0.1 X10'3 (0-0.9); EOSINOPHILS % (AUTO) 0.3 % (0-6); HEMOGLOBIN 8.8 g/dl (12.0-16.0); MONOCYTES # (AUTO) 0.8 X10'3 (0-0.9); NEUTROPHILS # (AUTO) 4.3 X10'3 (1.8-7.7)
[2020-06-08 06:27] LABS: HEMATOCRIT 28.7 % (35.0-45.0); LYMPHOCYTES # (AUTO) 17.3 X10'3 (1.1-4.8); MEAN CORPUSCULAR HEMOGLOBIN 29.8 PG (27.0-31.0); MEAN CORPUSCULAR HGB CONC 30.6 g/dL (33.0-36.5); MEAN CORPUSCULAR VOLUME 97.6 FL (78-98); MEAN PLATELET VOLUME 8.8 FL (7.4-10.4); MONOCYTES % (AUTO) 3.4 % (2-12); NEUTROPHILS % (AUTO) 19.2 % (42-75); PLATELET COUNT 123 X10'3 (140-440); RED BLOOD COUNT 2.94 X10'6 (4.20-5.60); RED CELL DISTRIBUTION WIDTH 15.2 % (11.5-14.5); WHITE BLOOD COUNT 22.5 X10'3 (4.5-11.0)
--- NOTE | 2020-06-08 06:31 | NUR ---
Patient in room PCU 3012. I have received report from ANDRIY Lazo and had the opportunity to ask questions and assume patient care. Patient awake in bed and in no acute distress.
[2020-06-08 07:00] VITALS: BP 126/61
[2020-06-08] MEDS: pantoprazole 40mg Tablet.DR PO SCH ×2 (07:30→08:00)
[2020-06-08] MEDS: heparin, porcine 5000 units/ml vial SQ SCH ×2 (07:54→19:32)
[2020-06-08] MEDS: lisinopril 10 MG tablet PO SCH (07:57)
[2020-06-08] MEDS: montelukast 10mg tablet PO SCH (07:58)
[2020-06-08] MEDS: apixaban 5mg tablet PO SCH ×2 (07:58→19:32)
[2020-06-08] MEDS: loratadine 10mg tablet PO SCH (07:58)
[2020-06-08] MEDS: gabapentin 100mg capsule PO SCH (07:59)
[2020-06-08] MEDS: diltiazem CD 120mg capsule (once-daily) PO SCH (07:59)
[2020-06-08 08:19] LABS: ALBUMIN 2.6 G/DL (3.4-5.0); ANION GAP 9 (8-16); BLOOD UREA NITROGEN 89 MG/DL (7-18); BUN/CREATININE RATIO 17.8 (6.6-38.0); CALCIUM 8.8 MG/DL (8.5-10.1); CHLORIDE 112 MMOL/L (99-107); GLUCOSE 103 MG/DL (70-104); POTASSIUM 4.6 MMOL/L (3.5-5.1); SODIUM 148 MMOL/L (135-145); TOTAL CARBON DIOXIDE 27.5 MMOL/L (24-32); eGFR 8 ML/MIN
[2020-06-08 08:51] LABS: SMUDGE CELLS 3+; TOTAL CELLS COUNTED 100
[2020-06-08] MEDS: fluconazole-Diflucan 100MG/NS 50 ML IV SCH (08:52)
[2020-06-08] MEDS: fluticasone nasal spray 16GM bottle NS SCH (08:52)
[2020-06-08 08:53] LABS: PLATELET ESTIMATE DECREASED
[2020-06-08 11:00] VITALS: BP 111/47
[2020-06-08 15:00] VITALS: BP 98/56
--- NOTE | 2020-06-08 16:18 | NUR ---
Orders for CBC and BMP put in until 06/[address] Jones.
[2020-06-08 18:00] VITALS: BP 114/51
--- NOTE | 2020-06-08 18:08 | NUR ---
Problems reprioritized. Patient report given, questions answered & plan of care reviewed with ANDRIY Su. Patient stable at transfer of care.
[2020-06-08] MEDS: Melatonin 3mg tablet PO SCH (20:37)
[2020-06-08 22:00] VITALS: BP 119/53
[2020-06-09] VITALS (10 sets, daily range): BP systolic 92–126; BP diastolic 43–64
[2020-06-09 05:37] LABS: EOSINOPHILS # (AUTO) 0.1 X10'3 (0-0.9); HEMOGLOBIN 8.5 g/dl (12.0-16.0); MEAN CORPUSCULAR HEMOGLOBIN 29.8 PG (27.0-31.0); MONOCYTES # (AUTO) 0.6 X10'3 (0-0.9)
[2020-06-09 05:38] LABS: BASOPHILS % (AUTO) 0.1 % (0-1); EOSINOPHILS % (AUTO) 0.4 % (0-6); LYMPHOCYTES # (AUTO) 12.8 X10'3 (1.1-4.8); LYMPHOCYTES % (AUTO) 71.2 % (21-51); MEAN CORPUSCULAR HGB CONC 30.4 g/dL (33.0-36.5); MEAN CORPUSCULAR VOLUME 97.9 FL (78-98); MEAN PLATELET VOLUME 9.1 FL (7.4-10.4); MONOCYTES % (AUTO) 3.6 % (2-12); NEUTROPHILS # (AUTO) 4.4 X10'3 (1.8-7.7); NEUTROPHILS % (AUTO) 24.7 % (42-75); PLATELET COUNT 97 X10'3 (140-440); RED BLOOD COUNT 2.86 X10'6 (4.20-5.60); RED CELL DISTRIBUTION WIDTH 15.6 % (11.5-14.5)
--- NOTE | 2020-06-09 06:27 | NUR ---
Problems reprioritized. Patient report given, questions answered & plan of care reviewed with ANDRIY Browne.
--- NOTE | 2020-06-09 06:30 | NUR ---
Patient in room PCU 3012. I have received report from ANDRIY aPtel and had the opportunity to ask questions and assume patient care.
[2020-06-09 06:51] LABS: ALBUMIN 2.5 G/DL (3.4-5.0); ANION GAP 10 (8-16); BLOOD UREA NITROGEN 89 MG/DL (7-18); BUN/CREATININE RATIO 17.2 (6.6-38.0); CALCIUM 8.4 MG/DL (8.5-10.1); CHLORIDE 110 MMOL/L (99-107); CREATININE 5.18 MG/DL (0.40-0.90); GLUCOSE 91 MG/DL (70-104); MAGNESIUM 2.1 MG/DL (1.5-2.4); PHOSPHORUS 7.8 MG/DL (2.3-4.5); POTASSIUM 4.9 MMOL/L (3.5-5.1); SODIUM 146 MMOL/L (135-145); TOTAL CARBON DIOXIDE 25.6 MMOL/L (24-32); eGFR 8 ML/MIN
[2020-06-09] MEDS: pantoprazole 40mg Tablet.DR PO SCH ×2 (07:30→07:40)
[2020-06-09] MEDS: apixaban 5mg tablet PO SCH ×2 (07:40→19:06)
[2020-06-09] MEDS: montelukast 10mg tablet PO SCH (07:40)
[2020-06-09] MEDS: diltiazem CD 120mg capsule (once-daily) PO SCH (07:40)
[2020-06-09] MEDS: lisinopril 10 MG tablet PO SCH (07:41)
[2020-06-09] MEDS: gabapentin 100mg capsule PO SCH (07:41)
[2020-06-09] MEDS: loratadine 10mg tablet PO SCH (07:41)
[2020-06-09] MEDS: fluticasone nasal spray 16GM bottle NS SCH (08:00)
[2020-06-09] MEDS: heparin, porcine 5000 units/ml vial SQ SCH (08:00)
[2020-06-09 08:33] LABS: TOTAL CELLS COUNTED 100
[2020-06-09 08:35] LABS: LARGE PLATELETS FEW; SMUDGE CELLS 3+
[2020-06-09 08:37] LABS: PLATELET ESTIMATE DECREASED
[2020-06-09] MEDS: furosemide 40mg/4ml inj IV SCH ×2 (08:54→19:05)
[2020-06-09] MEDS: fluconazole-Diflucan 100MG/NS 50 ML IV SCH (08:55)
[2020-06-09] MEDS ORDERED: heparin 1,000unit/ml 10ml vial 10 ML ONE (09:10)
[2020-06-09] MEDS ORDERED: LIDOcaine 1%/PF 5ML 10 MG/ML VIAL ONE (09:10)
[2020-06-09] MEDS ORDERED: midazolam 2 mg/2 ml injection ONE (09:10)
[2020-06-09] MEDS ORDERED: fentaNYL/PF 50MCG/1 ML 2ML syringe ONE (09:10)
--- NOTE | 2020-06-09 10:30 | NUR ---
Patient returned to the floor from [facility] s/p TDC placement. Patient placed back onto BIPAP 50% FIO2. TDC site clean, dry, and intact.
[2020-06-09] MEDS ORDERED: heparin 1,000 units/ml 10ml inj HE ONE ×2 (12:40)
[2020-06-09] MEDS ORDERED: epoetin 20,000 units/ml inj IV ONE (12:40)
[2020-06-09 12:50] LABS: ABG BASE EXCESS -8.3 mmol/L (-2.0-2.0); ABG HCO3 22.7 mmol/L (22.0-26.0); ABG OXYGEN SATURATION 96.5 % (94-97); ABG PCO2 (T) 84.4 mmHg (32.0-45.0); ABG PO2 (T) 101.8 mmHg (75.0-100.0); ALLEN'S TEST POSITIVE; FCOHb 0.5 % (0.0-3.9); FMetHb 0.2 % (0.0-1.5); FO2Hb 95.8 % (94-97); TOTAL HEMOGLOBIN 9.3 G/dl (12.0-16.0)
--- NOTE | 2020-06-09 12:51 | NUR ---
notified. PAGER ID: [phone] MESSAGE: Re: [email or web address]. [id number]. RT unable to get ABG prior to TDC placement. Critical ABG at 1245. PH 7.04, CO2 84.4. PO2 101.8. Hollie Manrique [phone].
--- NOTE | 2020-06-09 18:30 | NUR ---
Problems reprioritized. Patient report given, questions answered & plan of care reviewed with ANDRIY Patel.
[2020-06-09] MEDS: Melatonin 3mg tablet PO SCH (20:50)
[2020-06-10] VITALS (12 sets, daily range): BP systolic 83–133; BP diastolic 47–71
[2020-06-10 06:08] LABS: BASOPHILS % (AUTO) 0.1 % (0-1); EOSINOPHILS # (AUTO) 0.1 X10'3 (0-0.9); EOSINOPHILS % (AUTO) 0.4 % (0-6); HEMATOCRIT 28.9 % (35.0-45.0); HEMOGLOBIN 8.9 g/dl (12.0-16.0); LYMPHOCYTES # (AUTO) 13.5 X10'3 (1.1-4.8); LYMPHOCYTES % (AUTO) 68.5 % (21-51); MEAN CORPUSCULAR HEMOGLOBIN 29.9 PG (27.0-31.0); MEAN CORPUSCULAR HGB CONC 30.9 g/dL (33.0-36.5); MEAN CORPUSCULAR VOLUME 96.8 FL (78-98); MONOCYTES # (AUTO) 0.7 X10'3 (0-0.9); MONOCYTES % (AUTO) 3.5 % (2-12); NEUTROPHILS # (AUTO) 5.4 X10'3 (1.8-7.7); NEUTROPHILS % (AUTO) 27.5 % (42-75); PLATELET COUNT 108 X10'3 (140-440); RED BLOOD COUNT 2.99 X10'6 (4.20-5.60); RED CELL DISTRIBUTION WIDTH 15.4 % (11.5-14.5); WHITE BLOOD COUNT 19.7 X10'3 (4.5-11.0)
--- NOTE | 2020-06-10 06:15 | NUR ---
Problems reprioritized. Patient report given, questions answered & plan of care reviewed with Rosa Pham RN.
[2020-06-10 06:25] LABS: ALBUMIN 2.5 G/DL (3.4-5.0); ANION GAP 6 (8-16); BLOOD UREA NITROGEN 59 MG/DL (7-18); BUN/CREATININE RATIO 13.8 (6.6-38.0); CALCIUM 8.4 MG/DL (8.5-10.1); CHLORIDE 108 MMOL/L (99-107); CREATININE 4.29 MG/DL (0.40-0.90); GLUCOSE 96 MG/DL (70-104); POTASSIUM 4.5 MMOL/L (3.5-5.1); SODIUM 142 MMOL/L (135-145); TOTAL CARBON DIOXIDE 27.9 MMOL/L (24-32); eGFR 10 ML/MIN
--- NOTE | 2020-06-10 06:33 | NUR ---
Patient in room PCU 3012. I have received report from ANDRIY Patel and had the opportunity to ask questions and assume patient care. Pt sleeping at time of shift change.
[2020-06-10 07:16] LABS: ANISOCYTOSIS 1+; HYPOCHROMASIA 1+; PLATELET ESTIMATE DECREASED; POLYCHROMASIA 1+; SMUDGE CELLS 3+; STOMATOCYTES 1+; TOTAL CELLS COUNTED 100
[2020-06-10] MEDS: gabapentin 100mg capsule PO SCH (07:52)
[2020-06-10] MEDS: furosemide 40mg/4ml inj IV SCH ×2 (07:52→19:04)
[2020-06-10] MEDS: pantoprazole 40mg Tablet.DR PO SCH (07:52)
[2020-06-10] MEDS: montelukast 10mg tablet PO SCH (07:52)
[2020-06-10] MEDS: diltiazem CD 120mg capsule (once-daily) PO SCH (07:52)
[2020-06-10] MEDS: loratadine 10mg tablet PO SCH (07:52)
[2020-06-10] MEDS: lisinopril 10 MG tablet PO SCH (07:53)
[2020-06-10] MEDS: apixaban 5mg tablet PO SCH ×2 (07:53→19:04)
[2020-06-10] MEDS: fluconazole-Diflucan 100MG/NS 50 ML IV SCH (07:53)
[2020-06-10] MEDS: fluticasone nasal spray 16GM bottle NS SCH (07:54)
--- NOTE | 2020-06-10 12:10 | NUR ---
Pt s/p placement of tunneled dialysis catheter. Eating poorly, 25% PO intake likely r/t confusion. Admitted from [facility] with respiratory failure, BiPAP at night, leukocytosis, h/o UTI and CKD. Phosphorus elevated, recommend phospate binder, d/w RN. May benefit from oral supplement, Nepro, in view of poor PO Intake. rec: 1. regular diet while appetite is poor, nepro with meals 2. phosphate binder with meals 3. bowel care as needed 4. wt per rx Addendum: 06/10/20 at [address] Amended: Links added.
[2020-06-10] MEDS: NUT.TX.IMP.RENAL FXN,LAC-REDUC (Nepro) 237 ML VANILLA PO SCH ×2 (13:00→18:00)
[2020-06-10 15:41] LABS: ABG BASE EXCESS -2.5 mmol/L (-2.0-2.0); ABG HCO3 25.5 mmol/L (22.0-26.0); ABG OXYGEN SATURATION 90.6 % (94-97); ABG PCO2 (T) 62.9 mmHg (32.0-45.0); ABG PO2 (T) 61.4 mmHg (75.0-100.0); ALLEN'S TEST POSITIVE; FCOHb 0.5 % (0.0-3.9); FMetHb 0.2 % (0.0-1.5); RESPIRATORY RATE 28 b/min; TOTAL HEMOGLOBIN 9.2 G/dl (12.0-16.0)
--- NOTE | 2020-06-10 18:10 | NUR ---
Problems reprioritized. Patient report given, questions answered & plan of care reviewed with ANDRIY Patel. Pt sitting up in bed, eating dinner. All patient needs met at this time.
[2020-06-10] MEDS: Melatonin 3mg tablet PO SCH (21:28)
--- NOTE | 2020-06-10 21:58 | NUR ---
Paged Dr. Horn. PAGER ID: [phone] MESSAGE: This is ANDRIY Patel x [phone]. Pt. Irvin Castelan. Dx: Acute on CRespF; chronic kidney failure; has having low bp (83/47 (54); O2 93% BP FI02 35%. in no acute distress; I gave 300 ml bolus; had Lasix 40 mg @ 1904.Do you have any order? Thx.
[2020-06-11 02:00] VITALS: BP 105/49
[2020-06-11 06:00] VITALS: BP 109/44
[2020-06-11 06:08] LABS: BASOPHILS % (AUTO) 0.1 % (0-1); EOSINOPHILS # (AUTO) 0.1 X10'3 (0-0.9); EOSINOPHILS % (AUTO) 0.6 % (0-6); MEAN CORPUSCULAR HEMOGLOBIN 29.6 PG (27.0-31.0)
--- NOTE | 2020-06-11 06:08 | NUR ---
Problems reprioritized. Patient report given, questions answered & plan of care reviewed with ANDRIY Guido.
--- NOTE | 2020-06-11 06:10 | NUR ---
Patient in room PCU 3012. I have received report from Amanda ASHRAF and had the opportunity to ask questions and assume patient care.
[2020-06-11 06:11] LABS: HEMOGLOBIN 8.7 g/dl (12.0-16.0); LYMPHOCYTES # (AUTO) 13.1 X10'3 (1.1-4.8); LYMPHOCYTES % (AUTO) 67.3 % (21-51); MEAN CORPUSCULAR VOLUME 95.6 FL (78-98); MONOCYTES # (AUTO) 0.8 X10'3 (0-0.9); MONOCYTES % (AUTO) 4.1 % (2-12); NEUTROPHILS # (AUTO) 5.5 X10'3 (1.8-7.7); NEUTROPHILS % (AUTO) 27.9 % (42-75); PLATELET COUNT 116 X10'3 (140-440); RED BLOOD COUNT 2.93 X10'6 (4.20-5.60); RED CELL DISTRIBUTION WIDTH 15.9 % (11.5-14.5); WHITE BLOOD COUNT 19.6 X10'3 (4.5-11.0)
[2020-06-11 06:27] LABS: ALBUMIN 2.5 G/DL (3.4-5.0); ANION GAP 10 (8-16); BLOOD UREA NITROGEN 64 MG/DL (7-18); BUN/CREATININE RATIO 13.1 (6.6-38.0); CALCIUM 8.1 MG/DL (8.5-10.1); CHLORIDE 105 MMOL/L (99-107); CREATININE 4.87 MG/DL (0.40-0.90); GLUCOSE 87 MG/DL (70-104); POTASSIUM 4.5 MMOL/L (3.5-5.1); SODIUM 141 MMOL/L (135-145); TOTAL CARBON DIOXIDE 25.9 MMOL/L (24-32); eGFR 9 ML/MIN
[2020-06-11] MEDS: lisinopril 10 MG tablet PO SCH (08:00)
[2020-06-11] MEDS: NUT.TX.IMP.RENAL FXN,LAC-REDUC (Nepro) 237 ML VANILLA PO SCH ×3 (08:00→18:00)
[2020-06-11] MEDS: apixaban 5mg tablet PO SCH ×2 (08:16→20:42)
[2020-06-11] MEDS: montelukast 10mg tablet PO SCH (08:16)
[2020-06-11] MEDS: pantoprazole 40mg Tablet.DR PO SCH (08:16)
[2020-06-11] MEDS: diltiazem CD 120mg capsule (once-daily) PO SCH (08:16)
[2020-06-11] MEDS: loratadine 10mg tablet PO SCH (08:17)
[2020-06-11] MEDS: gabapentin 100mg capsule PO SCH (08:17)
[2020-06-11] MEDS: fluticasone nasal spray 16GM bottle NS SCH (08:20)
[2020-06-11] MEDS: furosemide 40mg/4ml inj IV SCH ×2 (08:24→20:42)
[2020-06-11] MEDS: fluconazole-Diflucan 100MG/NS 50 ML IV SCH (08:24)
[2020-06-11 11:00] VITALS: BP 124/71
[2020-06-11] MEDS ORDERED: albumin (human) 25% 100ml IV 100 ML IV PRN (11:00)
[2020-06-11] MEDS ORDERED: epoetin 20,000 units/ml inj IV ONE (11:00)
[2020-06-11] MEDS ORDERED: heparin 1,000 units/ml 10ml inj HE ONE ×2 (11:05)
[2020-06-11 14:40] LABS: HBSAG SCREEN Negative (Negative)
[2020-06-11 15:00] VITALS: BP 104/50
--- NOTE | 2020-06-11 18:17 | NUR ---
Problems reprioritized. Patient report given, questions answered & plan of care reviewed with Patricia ASHRAF.
[2020-06-11 19:00] VITALS: BP 130/85
[2020-06-11] MEDS: Melatonin 3mg tablet PO SCH (20:42)
[2020-06-11 23:00] VITALS: BP 103/47
[2020-06-12] VITALS (7 sets, daily range): BP systolic 81–122; BP diastolic 31–60
[2020-06-12 06:19] LABS: BASOPHILS % (AUTO) 0.1 % (0-1); EOSINOPHILS # (AUTO) 0.1 X10'3 (0-0.9); HEMOGLOBIN 8.6 g/dl (12.0-16.0); MONOCYTES # (AUTO) 0.9 X10'3 (0-0.9); PLATELET COUNT 127 X10'3 (140-440)
[2020-06-12 06:20] LABS: EOSINOPHILS % (AUTO) 0.3 % (0-6); HEMATOCRIT 28.4 % (35.0-45.0); LYMPHOCYTES # (AUTO) 12.8 X10'3 (1.1-4.8); LYMPHOCYTES % (AUTO) 66.1 % (21-51); MEAN CORPUSCULAR HEMOGLOBIN 29.4 PG (27.0-31.0); MEAN CORPUSCULAR HGB CONC 30.3 g/dL (33.0-36.5); MEAN CORPUSCULAR VOLUME 96.8 FL (78-98); MEAN PLATELET VOLUME 9.6 FL (7.4-10.4); MONOCYTES % (AUTO) 4.4 % (2-12); NEUTROPHILS # (AUTO) 5.6 X10'3 (1.8-7.7); NEUTROPHILS % (AUTO) 29.1 % (42-75); RED BLOOD COUNT 2.93 X10'6 (4.20-5.60); RED CELL DISTRIBUTION WIDTH 15.7 % (11.5-14.5); WHITE BLOOD COUNT 19.3 X10'3 (4.5-11.0)
[2020-06-12 06:57] LABS: ALBUMIN 2.5 G/DL (3.4-5.0); ANION GAP 7 (8-16); BLOOD UREA NITROGEN 46 MG/DL (7-18); BUN/CREATININE RATIO 11.7 (6.6-38.0); CALCIUM 9.2 MG/DL (8.5-10.1); CHLORIDE 106 MMOL/L (99-107); CREATININE 3.92 MG/DL (0.40-0.90); GLUCOSE 89 MG/DL (70-104); POTASSIUM 4.6 MMOL/L (3.5-5.1); SODIUM 143 MMOL/L (135-145); TOTAL CARBON DIOXIDE 29.8 MMOL/L (24-32); eGFR 11 ML/MIN
[2020-06-12] MEDS: fluticasone nasal spray 16GM bottle NS SCH (08:00)
[2020-06-12] MEDS: diltiazem CD 120mg capsule (once-daily) PO SCH (08:05)
[2020-06-12] MEDS: loratadine 10mg tablet PO SCH (08:05)
[2020-06-12] MEDS: furosemide 40mg/4ml inj IV SCH (08:05)
[2020-06-12] MEDS: pantoprazole 40mg Tablet.DR PO SCH (08:05)
[2020-06-12] MEDS: lisinopril 10 MG tablet PO SCH (08:05)
[2020-06-12] MEDS: montelukast 10mg tablet PO SCH (08:05)
[2020-06-12] MEDS: NUT.TX.IMP.RENAL FXN,LAC-REDUC (Nepro) 237 ML VANILLA PO SCH ×3 (08:06→18:00)
[2020-06-12] MEDS: apixaban 5mg tablet PO SCH ×2 (08:06→20:00)
[2020-06-12] MEDS: gabapentin 100mg capsule PO SCH (08:06)
[2020-06-12] MEDS: fluconazole-Diflucan 100MG/NS 50 ML IV SCH (08:07)
[2020-06-12 08:18] LABS: TOTAL CELLS COUNTED 100
[2020-06-12 08:21] LABS: PLATELET ESTIMATE DECREASED; STOMATOCYTES 2+
[2020-06-12 08:22] LABS: LARGE PLATELETS FEW; POLYCHROMASIA 1+; SMUDGE CELLS 2+; TEAR DROP CELLS FEW
--- NOTE | 2020-06-12 11:59 | NUR ---
PT ACCIDENTLY PULLED OUT HER IV. TWO NURSES ATTEMPTED IV ACCESS. CHARGE CALLED ULTRA SOUND TO COME. PT'S BP DROPPED TO 71/37 HOSPITALIST IS IN THE ROOM. VERBAL FROM CHARGE IS PT CHANGED HER CODE STATUS. WILL VERIFY
[2020-06-12] MEDS ORDERED: albumin (Human) 5% 250ml 250 ML IV ONE (12:15)
--- NOTE | 2020-06-12 12:24 | NUR ---
SHEMAR ESQUIVEL ( POA ) CALLED TO CHECK ON PATIENT TODAY. I LET THE PATIENT NKOW SHE WAS TRYING TO CALL HER ROOM AND GAVE THE PATIENT HER MESSAGE.
--- NOTE | 2020-06-12 13:12 | NUR ---
AN ORDER WAS PUT IN AT 1215 BY HOSPITALIST. UNABLE TO ADMIN ORDER UNTIL PATIENT HAS AN IV PUT IN. WE ARE WAITING FOR ULTRA SOUND. CHARGE AND HOSPITALIST AWARE.
[2020-06-12] MEDS ORDERED: midodrine 5mg tablet PO ONE (13:55)
--- NOTE | 2020-06-12 15:26 | NUR ---
Reassessment: Pt PO improved ~50-75% most recent meals past 2 days up from ~25% prior. Remains confused and AOx2 per EMR. LBM 12/ w/ small BM's x3 following large BM 06/06 per EMR. Pt hypotensive today w/ lasix dosage decreased and s/p one dose ALB per PA note. Pt refused Nepro this AM though also intermittently bipap dependent likely to impact meals/ONS PO on top of ALOC. Will continue to monitor for additional protein needs on HD. rec: 1. regular diet while appetite is poor, nepro with meals; encourage PO 2. phosphate binder with meals 3. routine bowel care 4. scaled wt this admit; wts w/ HD Addendum: 06/12/20 at [address] Amended: Links added.
[2020-06-12] MEDS ORDERED: midodrine 5mg tablet PO SCH ×2 (16:00→17:14)
--- NOTE | 2020-06-12 18:36 | NUR ---
Patient in room PCU 3012. I have received report from FANG ASHRAF and had the opportunity to ask questions and assume patient care.
[2020-06-12] MEDS: furosemide 20 MG/2 ML vial IV SCH (20:00)
[2020-06-12] MEDS: midodrine 5mg tablet PO SCH (22:00)
[2020-06-12] MEDS ORDERED: midodrine tablet 2.5 MG TABLET PO SCH (22:00)
--- NOTE | 2020-06-12 22:15 | NUR ---
PT REMAINS OBTUNDED MD NOTIFIED ORDERS RECEIVED
[2020-06-12 22:36] LABS: ABG HCO3 29.1 mmol/L (22.0-26.0); ABG OXYGEN SATURATION 93.8 % (94-97); ABG PCO2 (T) 95.1 mmHg (32.0-45.0); ABG PO2 (T) 72.6 mmHg (75.0-100.0); ALLEN'S TEST POSITIVE; FMetHb 0.3 % (0.0-1.5); FO2Hb 92.6 % (94-97); RESPIRATORY RATE 22 b/min
--- NOTE | 2020-06-12 22:49 | NUR ---
HAIR CAMARILLO GIVEN RESULTS OF ABGS--NO NEW ORDERS
[2020-06-13] VITALS (10 sets, daily range): BP systolic 75–111; BP diastolic 15–67
--- NOTE | 2020-06-13 04:40 | NUR ---
PT WOKE UP THIS MORNING AND STATED THAT SHE WAS HUNGRY
[2020-06-13] MEDS: furosemide 20 MG/2 ML vial IV SCH ×3 (08:00→20:33)
[2020-06-13] MEDS: albumin (Human) 5% 250ml 250 ML IV SCH ×3 (08:22→15:57)
[2020-06-13] MEDS: NUT.TX.IMP.RENAL FXN,LAC-REDUC (Nepro) 237 ML VANILLA PO SCH ×3 (08:23→18:00)
[2020-06-13] MEDS: pantoprazole 40mg Tablet.DR PO SCH (08:23)
[2020-06-13] MEDS: apixaban 5mg tablet PO SCH ×2 (08:23→20:33)
[2020-06-13] MEDS: midodrine 5mg tablet PO SCH ×3 (08:44→16:00)
[2020-06-13 09:07] LABS: ALBUMIN 2.7 G/DL (3.4-5.0); ANION GAP 9 (8-16); BLOOD UREA NITROGEN 50 MG/DL (7-18); BUN/CREATININE RATIO 10.8 (6.6-38.0); CALCIUM 8.7 MG/DL (8.5-10.1); CHLORIDE 106 MMOL/L (99-107); CREATININE 4.64 MG/DL (0.40-0.90); GLUCOSE 98 MG/DL (70-104); POTASSIUM 4.7 MMOL/L (3.5-5.1); SODIUM 141 MMOL/L (135-145); eGFR 9 ML/MIN
[2020-06-13 09:16] LABS: BASOPHILS % (AUTO) 0.1 % (0-1); EOSINOPHILS # (AUTO) 0.2 X10'3 (0-0.9); HEMOGLOBIN 8.7 g/dl (12.0-16.0); MONOCYTES # (AUTO) 0.9 X10'3 (0-0.9)
[2020-06-13 09:17] LABS: EOSINOPHILS % (AUTO) 0.8 % (0-6); HEMATOCRIT 28.8 % (35.0-45.0); LYMPHOCYTES # (AUTO) 14.6 X10'3 (1.1-4.8); LYMPHOCYTES % (AUTO) 61.1 % (21-51); MEAN CORPUSCULAR HEMOGLOBIN 29.8 PG (27.0-31.0); MEAN CORPUSCULAR HGB CONC 30.3 g/dL (33.0-36.5); MEAN CORPUSCULAR VOLUME 98.2 FL (78-98); MONOCYTES % (AUTO) 3.9 % (2-12); NEUTROPHILS # (AUTO) 8.2 X10'3 (1.8-7.7); NEUTROPHILS % (AUTO) 34.1 % (42-75); PLATELET COUNT 154 X10'3 (140-440); RED BLOOD COUNT 2.93 X10'6 (4.20-5.60); WHITE BLOOD COUNT 23.9 X10'3 (4.5-11.0)
[2020-06-13] MEDS ORDERED: albumin (Human) 5% 250ml 250 ML IV STA ×2 (11:04)
--- NOTE | 2020-06-13 11:08 | NUR ---
Received telephone orders for 250ml of IV albumin now for patient low BPs with a MAP below [address] Leigh
[2020-06-13 11:49] LABS: TOTAL CELLS COUNTED 200
[2020-06-13 11:50] LABS: EOSINOPHILS % (MANUAL) 2 % (0-6); MONOCYTES % (MANUAL) 2 % (2-12); NEUTROPHILS % (MANUAL) 34 % (42-75); REACTIVE LYMPHOCYTES % 11 % (0-0)
[2020-06-13 11:51] LABS: HYPOCHROMASIA 1+; LYMPHOCYTES % (MANUAL) 51 % (21-51); PLATELET ESTIMATE NORMAL; POLYCHROMASIA FEW; SPHEROCYTES FEW; STOMATOCYTES 2+
[2020-06-13 11:52] LABS: SMUDGE CELLS 3+
--- NOTE | 2020-06-13 13:14 | NUR ---
Page Sent promotional table spacer PAGER ID: [phone] MESSAGE: [phone] . FYI .PT WBC increased to 23.9 from 19.3. Pt not on any antibiotics. Sally [id number]
[2020-06-13] MEDS ORDERED: midodrine tablet 2.5 MG TABLET PO SCH (14:45)
[2020-06-13] MEDS ORDERED: DOPamine 400mg/D5W 250ml 250 ML IV SCH (14:50)
--- NOTE | 2020-06-13 17:38 | NUR ---
[facility] REF [id number] LOT [id number] EXP 2021-04-06
--- NOTE | 2020-06-13 18:01 | NUR ---
Rapid called on pt today for low remaining low BP and MAP being below 60 for several hours despite all the albumin ordered and given. 500ml NS bolus given. PT to get PICC line, midodrine, and start dopamine after PICC placement in confirmed.
--- NOTE | 2020-06-13 18:30 | NUR ---
Patient in room PCU 3012. I have received report from ANDRIY Zavala and had the opportunity to ask questions and assume patient care.
--- NOTE | 2020-06-13 18:35 | NUR ---
Problems reprioritized. Patient report given, questions answered & plan of care reviewed with Dinora ASHRAF.
[2020-06-13] MEDS: DOPamine 400mg/D5W 250ml 250 ML IV SCH (20:37)
[2020-06-14 02:00] VITALS: BP 98/55
[2020-06-14] MEDS: DOPamine 400mg/D5W 250ml 250 ML IV SCH ×3 (04:21→13:43)
--- NOTE | 2020-06-14 06:29 | NUR ---
Problems reprioritized. Patient report given, questions answered & plan of care reviewed with ANDRIY Kidd.
--- NOTE | 2020-06-14 06:37 | NUR ---
Patient in room PCU 3012. I have received report from Dinora ASHRAF and had the opportunity to ask questions and assume patient care.
[2020-06-14 07:00] VITALS: BP 91/50
[2020-06-14] MEDS: midodrine 5mg tablet PO SCH ×3 (07:17→16:00)
[2020-06-14] MEDS: pantoprazole 40mg Tablet.DR PO SCH (07:17)
[2020-06-14] MEDS: apixaban 5mg tablet PO SCH (07:17)
[2020-06-14] MEDS ORDERED: albumin (human) 25% 100 ML IV solution IV ONE (07:40)
--- NOTE | 2020-06-14 07:40 | NUR ---
I received telephone orders from Dr. Snyder in response to the rapid called on this patient. She wanted a stat ABG, a stat CBC, a stat CMP, and if no antibiotic was ordered then she wanted 3.375mg of zosyn IV once now.
[2020-06-14] MEDS ORDERED: piperacillin/tazo 3.375gm/50ml 50 ML IV ONE (07:45)
[2020-06-14 07:50] LABS: ABG BASE EXCESS -1.6 mmol/L (-2.0-2.0); ABG HCO3 31.7 mmol/L (22.0-26.0); ABG OXYGEN SATURATION 95.1 % (94-97); ABG PCO2 (T) 123.8 mmHg (32.0-45.0); ABG PO2 (T) 77.6 mmHg (75.0-100.0); ALLEN'S TEST POSITIVE; FCOHb 0.7 % (0.0-3.9); FMetHb 0.1 % (0.0-1.5); FO2Hb 94.3 % (94-97); PATIENT TEMPERATURE 35.7; RESPIRATORY RATE 22 b/min; TIDAL VOLUME 464 mL
--- NOTE | 2020-06-14 07:56 | NUR ---
Rapid Response A rapid response was called on this patient. On arrival to bedside, the patient was hypotensive and unrepsonsive. Interventions: Dr. Leigh called: ABG obtained, Albumin and Zosyn ordered, STAT CMP and CBC Rapid response outcome: Pending evaluation, possible transfer to ICU
--- NOTE | 2020-06-14 07:58 | NUR ---
Page sent to Dr. Snyder: MESSAGE: [id number] Jesenia Castelan: Calling rapid for obtunded patient on Bipap
[2020-06-14] MEDS: furosemide 20 MG/2 ML vial IV SCH (08:00)
[2020-06-14] MEDS: NUT.TX.IMP.RENAL FXN,LAC-REDUC (Nepro) 237 ML VANILLA PO SCH ×2 (08:07→13:00)
[2020-06-14 09:00] VITALS: BP 94/46
[2020-06-14] MEDS ORDERED: epoetin 20,000 units/ml inj IV ONE (09:15)
[2020-06-14] MEDS ORDERED: albumin (human) 25% 100ml IV 100 ML IV PRN (09:15)
[2020-06-14] MEDS ORDERED: normal saline 1000ml 250 ML IV PRN (09:15)
[2020-06-14] MEDS ORDERED: heparin 1,000 units/ml 10ml inj HE ONE ×2 (09:20)
[2020-06-14 09:46] LABS: EOSINOPHILS % (AUTO) 0.1 % (0-6); MEAN CORPUSCULAR HEMOGLOBIN 29.4 PG (27.0-31.0); MEAN PLATELET VOLUME 8.5 FL (7.4-10.4); WHITE BLOOD COUNT 21.2 X10'3 (4.5-11.0)
[2020-06-14 09:57] LABS: BASOPHILS % (AUTO) 0.2 % (0-1); HEMATOCRIT 27.5 % (35.0-45.0); HEMOGLOBIN 8.2 g/dl (12.0-16.0); LYMPHOCYTES % (AUTO) 52.2 % (21-51); MEAN CORPUSCULAR HGB CONC 29.8 g/dL (33.0-36.5); MEAN CORPUSCULAR VOLUME 98.9 FL (78-98); MONOCYTES # (AUTO) 1.1 X10'3 (0-0.9); NEUTROPHILS % (AUTO) 42.5 % (42-75); PLATELET COUNT 174 X10'3 (140-440); RED BLOOD COUNT 2.78 X10'6 (4.20-5.60); RED CELL DISTRIBUTION WIDTH 15.6 % (11.5-14.5)
--- NOTE | 2020-06-14 10:54 | NUR ---
Roland is 13, has skin tear right leg. Noted last phosphorus lab from 06/09 at 7.8 H; recommend new phosphorus lab and phosphate binders with meals, d/w recs with bedside RN, to d/w . Addendum: 06/14/20 at [address] Amended: Links added.
[2020-06-14 11:00] VITALS: BP 97/54
[2020-06-14 11:58] LABS: ALANINE AMINOTRANSFERASE 35 U/L (12-78); ALBUMIN 3.7 G/DL (3.4-5.0); ALBUMIN/GLOBULIN RATIO 1.2 (1.1-1.5); ANION GAP 11 (8-16); ASPARTATE AMINO TRANSFERASE 19 U/L (10-37); BILIRUBIN,TOTAL 0.3 MG/DL (0.1-1.0); BLOOD UREA NITROGEN 56 MG/DL (7-18); BUN/CREATININE RATIO 10.4 (6.6-38.0); CALCIUM 8.7 MG/DL (8.5-10.1); CHLORIDE 104 MMOL/L (99-107); CREATININE 5.37 MG/DL (0.40-0.90); GLUCOSE 116 MG/DL (70-104); POTASSIUM 5.2 MMOL/L (3.5-5.1); SODIUM 140 MMOL/L (135-145); TOTAL CARBON DIOXIDE 25.5 MMOL/L (24-32); TOTAL PROTEIN 6.8 G/DL (6.4-8.2); eGFR 8 ML/MIN
--- NOTE | 2020-06-14 12:21 | NUR ---
Page sent to Dr. Snyder: PAGER ID: [phone] MESSAGE: [phone] Jesenia Castelan: I spoke to patient's POA about her condition, they would like to withdraw care for her. Please call me back at [phone], thanks, Sarahi
[2020-06-14 12:50] LABS: ALKALINE PHOSPHATASE 10 IU/L (46-116)
[2020-06-14 13:08] LABS: PLATELET ESTIMATE NORMAL; SMUDGE CELLS 2+; TOTAL CELLS COUNTED 100
[2020-06-14 13:12] LABS: SCHISTOCYTES FEW; STOMATOCYTES 2+
[2020-06-14 13:13] LABS: HYPOCHROMASIA 1+; POLYCHROMASIA FEW
[2020-06-14 13:43] VITALS: BP 99/43
[2020-06-14] MEDS ORDERED: morphine 10mg/ml inj. IV PRN (14:15)
[2020-06-14] MEDS ORDERED: LORazepam 2 mg/ml vial IV PRN (14:15)
--- NOTE | 2020-06-14 18:06 | NUR ---
Problems reprioritized. Patient report given, questions answered & plan of care reviewed with Dinora ASHRAF.
--- NOTE | 2020-06-14 18:20 | NUR ---
Patient in room PCU 3012. I have received report from ANDRIY Mcclain and had the opportunity to ask questions and assume patient care.
--- NOTE | 2020-06-14 18:25 | NUR ---
Problems reprioritized. Patient report given, questions answered & plan of care reviewed with Dinora ASHRAF.
--- NOTE | 2020-06-14 21:00 | NUR ---
Patient was on comfort care as of 06/14 day shift. Patient at 1950. POA notified, organ donor network contacted, expiration memorandum completed and in patient paper chart.
== END 2020-06-14 22:30 | disposition expired | DRG 673 ==
LOC: ER 16:44 → ED HOLD 21:06 → PCU 3S 23:10
PROVIDERS: ADMIT Internal Medicine; ATTEND Internal Medicine
PROC: 5A09357 Assistance with Respiratory Ventilation, Less than 24 Consecutive Hours, Continuous Positive Airway Pressure (ICD-10-PCS; 2020-06-04)
PROC: 5A09457 Assistance with Respiratory Ventilation, 24-96 Consecutive Hours, Continuous Positive Airway Pressure (ICD-10-PCS; 2020-06-06)
PROC: 5A09457 Assistance with Respiratory Ventilation, 24-96 Consecutive Hours, Continuous Positive Airway Pressure (ICD-10-PCS; 2020-06-08)
PROC: 0JH63XZ Insertion of Tunneled Vascular Access Device into Chest Subcutaneous Tissue and Fascia, Percutaneous Approach (ICD-10-PCS; principal; 2020-06-09)
PROC: 02H633Z Insertion of Infusion Device into Right Atrium, Percutaneous Approach (ICD-10-PCS; 2020-06-09)
PROC: B5181ZA Fluoroscopy of Superior Vena Cava using Low Osmolar Contrast, Guidance (ICD-10-PCS; 2020-06-09)
PROC: B548ZZA Ultrasonography of Superior Vena Cava, Guidance (ICD-10-PCS; 2020-06-09)
PROC: 5A1D70Z Performance of Urinary Filtration, Intermittent, Less than 6 Hours Per Day (ICD-10-PCS; 2020-06-09)
PROC: 5A09357 Assistance with Respiratory Ventilation, Less than 24 Consecutive Hours, Continuous Positive Airway Pressure (ICD-10-PCS; 2020-06-10)
PROC: 5A1D70Z Performance of Urinary Filtration, Intermittent, Less than 6 Hours Per Day (ICD-10-PCS; 2020-06-10)
PROC: 5A1D70Z Performance of Urinary Filtration, Intermittent, Less than 6 Hours Per Day (ICD-10-PCS; 2020-06-11)
PROC: 5A09357 Assistance with Respiratory Ventilation, Less than 24 Consecutive Hours, Continuous Positive Airway Pressure (ICD-10-PCS; 2020-06-12)
PROC: 02HV33Z Insertion of Infusion Device into Superior Vena Cava, Percutaneous Approach (ICD-10-PCS; 2020-06-13)
PROC: B548ZZA Ultrasonography of Superior Vena Cava, Guidance (ICD-10-PCS; 2020-06-13)
PROC: 5A09357 Assistance with Respiratory Ventilation, Less than 24 Consecutive Hours, Continuous Positive Airway Pressure (ICD-10-PCS; 2020-06-13)
PROC: 5A09357 Assistance with Respiratory Ventilation, Less than 24 Consecutive Hours, Continuous Positive Airway Pressure (ICD-10-PCS; 2020-06-14)
DX: N17.9 Acute kidney failure, unspecified (principal); J96.22 Acute and chronic respiratory failure with hypercapnia; J96.21 Acute and chronic respiratory failure with hypoxia; I13.0 Hypertensive heart and chronic kidney disease with heart failure and stage 1 through stage 4 chronic kidney disease, or unspecified chronic kidney disease; E66.2 Morbid (severe) obesity with alveolar hypoventilation; Z68.44 Body mass index [BMI] 60.0-69.9, adult; E87.2 Acidosis; Z66 Do not resuscitate; I50.813 Acute on chronic right heart failure; I27.81 Cor pulmonale (chronic); Z20.828 Contact with and (suspected) exposure to other viral communicable diseases; Z60.2 Problems related to living alone; I48.0 Paroxysmal atrial fibrillation; I95.9 Hypotension, unspecified; J44.9 Chronic obstructive pulmonary disease, unspecified; N18.9 Chronic kidney disease, unspecified; Z87.440 Personal history of urinary (tract) infections; Z87.891 Personal history of nicotine dependence; Z90.49 Acquired absence of other specified parts of digestive tract; Z99.81 Dependence on supplemental oxygen; Z79.899 Other long term (current) drug therapy
CPT/HCPCS: 36415; 36558; 36573; 36600; 71045; 76775; 76937; 77001; 80048; 80053; 81001; 82570; 82803; 82948; 83605; 83615; 83735; 83880; 84100; 84145; 84156; 84300; 84484; 85007; 85018; 85025; 85610; 86140; 87040; 87081; 87207; 87324; 87340; 87449; 87635; 93005; 94640; 94660; 94760; 94799; 96365; 96372; 96375; 97110; 97112; 97161; 97530; 99291; A7015; A9270; C1750; C1769; C1894; C9803; G0378; J0696; J1265; J1450; J1644; J1940; J2060; J2250; J2270; J2405; J2543; J2930; J3010; J3490; J7030; P9045; P9047; Q4081